=== PATIENT | female | born 1950 | race Caucasian/White ===

== ENCOUNTER 2019-12-24 19:27 | Outpatient (CLI) | payer MEDICARE, SELFPAY ==
--- NOTE | ~2019-12-24 | MR_ITS ---
EXAMINATION: MR cervical spine wo con DATE: 12/24/2019 20:15 INDICATION: Cervical radiculopathy. Neck pain. TECHNIQUE: Magnetic resonance imaging (MRI) of the cervical spine was performed without intravenous c ontrast. Sequences included sagittal T2-weighted FSE, sagittal T2-weighted FS FSE, sagittal T1-weight ed FSE, axial MERGE, and axial T2-weighted FSE. COMPARISON: None FINDINGS: There is 2 mm retrolisthesis of C4 on C5. There is 4 degrees levocurvature of cervical spin e. Vertebral body heights are normal. There is mildly decreased disc height at C4-C5 and C5-C6. The s rach cord signal intensity is normal. The following disc levels are specifically discussed: C2-C3: The disc does not extend beyond the endplate margin. There is no uncovertebral joint osteoarth ritis. There is severe right and moderate left facet joint osteoarthritis. There is mild right neural foraminal stenosis. There is no central canal stenosis. C3-C4: The disc does not extend beyond the endplate margin. There is no uncovertebral joint osteoarth ritis. There is moderate right and mild left facet joint osteoarthritis. There is no neural foraminal stenosis. There is no central canal stenosis. C4-C5: The disc does not extend beyond the endplate margin. There is mild right uncovertebral joint o steoarthritis. There is mild bilateral facet joint osteoarthritis. There is mild bilateral neural for aminal stenosis. There is mild central canal stenosis. C5-C6: The disc does not extend beyond the endplate margin. There is moderate right and severe left u ncovertebral joint osteoarthritis. There is moderate bilateral facet joint osteoarthritis. There is m ild right and moderate left neural foraminal stenosis. There is no central canal stenosis. C6-C7: The disc does not extend beyond the endplate margin. There is mild left uncovertebral joint os teoarthritis. There is moderate right and severe left facet joint osteoarthritis. There is mild left neural foraminal stenosis. There is no central canal stenosis. C7-T1: The disc does not extend beyond the endplate margin. There is no uncovertebral joint osteoarth ritis. There is severe right and moderate left facet joint osteoarthritis. There is mild bilateral ne ural foraminal stenosis. There is no central canal stenosis. IMPRESSION: 1. Moderate cervical spondylosis. Reviewed, dictated and finalized at location A.
== END 2019-12-24 19:28 | disposition home or self-care (01) ==
PROVIDERS: PCP Internal Medicine
DX: M47.22 Other spondylosis with radiculopathy, cervical region (principal)
CPT/HCPCS: 72141

== ENCOUNTER 2020-01-09 15:41 | Outpatient (CLI) | payer MEDICARE, SELFPAY ==
--- NOTE | ~2020-01-09 | CT_ITS ---
EXAMINATION:CT chest wo con DATE: 01/09/2020 16:06 INDICATION: Solitary pulmonary nodule. TECHNIQUE: Computed tomography (CT) of the chest was performed without intravenous contrast. Automate d exposure control and iterative reconstruction technique were employed. The dose-length product (DLP ) was 77.23 mGy-cm. COMPARISON: Chest CT 04/15/2019, 01/19/2016 FINDINGS: There is mild scarring at the lung apices. Calcified pulmonary nodules and calcified hilar and mediastinal lymph nodes are consistent with old granulomatous disease. There is mild atelectasis bilaterally. No pleural effusion. The heart size is normal. There is a stable small pericardial effus ion. Pectus excavatum is noted. Calcifications in the spleen are consistent with old granulomatous di sease. There is severe thoracic spondylosis. IMPRESSION: 1. Stable mild scarring at the lung apices. Reviewed, dictated and finalized at location A.
== END 2020-01-09 15:42 | disposition home or self-care (01) ==
PROVIDERS: PCP Internal Medicine
DX: R91.1 Solitary pulmonary nodule (principal); M47.812 Spondylosis without myelopathy or radiculopathy, cervical region; M75.01 Adhesive capsulitis of right shoulder; M79.12 Myalgia of auxiliary muscles, head and neck; M75.02 Adhesive capsulitis of left shoulder
CPT/HCPCS: 71250

== ENCOUNTER 2021-02-27 08:29 | Outpatient (CLI) | payer MEDICARE, SELFPAY ==
[2021-02-27 13:23] LABS: SARS-CoV-2 RNA PCR Negative (Negative)
== END 2021-02-27 08:30 | disposition home or self-care (01) ==
PROVIDERS: PCP Internal Medicine; Visit Provider Internal Medicine
DX: Z20.822 Contact with and (suspected) exposure to COVID-19 (principal)
CPT/HCPCS: C9803; U0003; U0005

== ENCOUNTER 2021-05-26 07:47 | Outpatient (CLI) | payer MEDICARE, SELFPAY ==
--- NOTE | 2021-05-26 | ECHO_ITS ---
Patient Info Name: Elis Rosa Age: 71 years : 1950 Gender: Female Ht: 64 in Wt: 130 lbs BSA: 1.64 m2 HR: 67 bpm BP: 138 / 80 mmHg Exam Date: 05/26/2021 8:21 AM Exam Location: [facility] Patient Status: Outpatient Admit Date: 05/26/2021 Staff Ordering Physician: Osmany, Chito Ray MD Laundry Operator Finishing: Lul Pérez, NEGRITA, RT Attending Provider: Osmany, Chito Ray MD Referring Physician: Osmany GARCIA; Exam Type: CA echo doppler color flow Study Info Indications I51.7 - Cardiomegaly Complete two-dimensional, color flow and Doppler transthoracic echocardiogram is performed. Strain analysis performed. Summary 1. Complete two-dimensional, color flow and Doppler transthoracic echocardiogram is performed. 2. Left ventricular chamber dimension is normal. 3. Left ventricular systolic function is normal, estimated at 60-65%. 4. The left ventricular diastolic function is grade I diastolic dysfunction. 5. E/e' 8 is minimally elevated. 6. Global longitudinal strain is minimally abnormal a -16.9%. 7. There is mild mitral valve regurgitation. 8. No pulmonary hypertension, estimated pulmonary arterial systolic pressure is 31 mmHg. 9. Dilated inferior vena cava with >50% collapse upon inspiration consistent with elevated right atrial pressure, 10 mmHg. 10. There is trivial pericardial effusion. Left Ventricle E/e' 8 is minimally elevated. Global longitudinal strain is minimally abnormal a -16.9%. Left ventricular chamber dimension is normal. Left ventricular systolic function is normal, estimated at 60-65%. The left ventricular diastolic function is grade I diastolic dysfunction. Right Ventricle Right ventricular chamber dimension is normal. Right ventricular systolic function is normal. Left Atria Left atrial chamber dimension is normal. Right Atria Right atrial chamber dimension is normal. Aortic Valve The aortic valve is trileaflet. There is no aortic valve stenosis. There is no aortic valve regurgitation. Pulmonic Valve There is no pulmonic regurgitation. Mitral Valve There is no mitral valve stenosis. There is mild mitral valve regurgitation. Tricuspid Valve There is no tricuspid valve regurgitation. No pulmonary hypertension, estimated pulmonary arterial systolic pressure is 31 mmHg. Pericardium/Pleural There is trivial pericardial effusion. Inferior Vena Cava Dilated inferior vena cava with >50% collapse upon inspiration consistent with elevated right atrial pressure, 10 mmHg. Aorta The aortic root size at the sinus of Valsalva is normal. Left Ventricular Outflow Tract Name Value Normal LVOT 2D LVOT Diameter 2.0 cm LVOT Doppler LVOT Peak Gradient 2 mmHg LVOT Mean Gradient 1 mmHg LVOT VTI 15 cm LVOT VTI/AV VTI Ratio 0.7 LVOT Stroke Volume 47 ml LVOT CO 3.5 l/min LVOT CI 2.2 l/min/m2 Mitral Valve
--- NOTE | 2021-05-26 14:48 | WPDPFTINT ---
PFT Procedure Performed PFT Procedure Performed Plethysmography (Lung Vol) Diffusing Cap (DLCO) Flow Vol Loop Spirometry w/o Bronchodil PFT Interpretation Lung volumes were measured with the body plethysmography method. The lung volumes are unremarkable. Spirometry showed normal expiratory flow rates, borderline normal FEV1 to FVC ratio of 69% and diminished mid expiratory flow rates at 53% predicted. No post bronchodilator study was carried out. Lung diffusion capacity is normal at 74% predicted. The flow volume loop is consistent with a small airway disease. Impression: Probable small airway disease. Lung diffusion capacity within normal range.
== END 2021-05-26 07:48 | disposition home or self-care (01) ==
LOC: ANHCARD 07:53
PROVIDERS: PCP Internal Medicine; Visit Provider Internal Medicine
DX: I51.7 Cardiomegaly (principal); R06.00 Dyspnea, unspecified; J43.9 Emphysema, unspecified; I34.0 Nonrheumatic mitral (valve) insufficiency
CPT/HCPCS: 93306; 94375; 94726; 94729

== ENCOUNTER 2021-10-23 18:22 | Observation (INO) | payer MEDICARE, SELFPAY ==
--- NOTE | ~2021-10-23 | NM_ITS ---
EXAMINATION: NM atiya stress w perfusion DATE: 10/25/2021 14:43 INDICATION: Chest pain. TECHNIQUE: Rest images were obtained following intravenous administration of 10.1 mCi Tc99m tetrofosm in (Myoview). The patient was infused intravenously with Lexiscan (regadenoson). Then, 33.1 mCi Tc99m tetrofosmin (Myoview) was administered intravenously, and stress images were obtained. Data was adelfo nstructed into short axis and horizontal and vertical long axis SPECT images. Gated SPECT images were also obtained. COMPARISON: Chest CT 01/09/2020 FINDINGS: There is no definite reversible or fixed perfusion abnormality to suggest ischemia or infar ction. There is no segmental wall motion abnormality. Left ventricular ejection fraction measures > 70%. IMPRESSION: 1. No definite ischemia or infarct. 2. Normal left ventricular ejection fraction measuring >70%. Reviewed, dictated and finalized at location A.
[2021-10-23 16:30] VITALS: BP 150/68; PULSE 78; PULSE 91; RESP 16; TEMP 36.5; O2SAT 100
--- NOTE | 2021-10-23 17:50 | ADMGEN ---
This patient, Elis Rosa, was admitted to IMU Room 200-01 at 1626. Patient/family oriented to hospital policies and general routines including ID bracelet, bed and alarms, visiting hours, pain management, procedures, bathroom and other care routines, personal items, smoking policy, room service/diet, and visiting hours. Information on how to activate the Rapid Response Team has been discussed. Patient/Family are encouraged to report perceived risks to care and to ask questions if they do not understand what they are told or what they should do.
[2021-10-23 18:00] VITALS: PULSE 79
--- NOTE | 2021-10-23 18:22 | ECG_ITS ---
Measurements Intervals [place] Rate: 77 P: 64 NC: 177 QRS: -46 QRSD: 93 T: 72 QT: 365 QTc: 414 Interpretive Statements SINUS RHYTHM LEFT ATRIAL ENLARGEMENT [-0.15mV P WAVE IN V1/V2] RSR' IN V1/V2 LEFT ANTERIOR FASCICULAR BLOCK [QRS AXIS <= -45, QR IN I, RS IN II] ANTERIOR MYOCARDIAL INFARCTION , OF INDETERMINATE AGE [40+ ms Q WAVE AND/OR ST/T ABNORMALITY IN V3/V4] ABNORMAL ECG NO PREVIOUS ECG AVAILABLE FOR COMPARISON Electronically Signed On 10-24-2021 16:13:59 CDT by Cecil Roa M.D.
--- NOTE | 2021-10-23 18:30 | PM.IMHP ---
H&P: HPI History of Present Illness Date/Time: 10/23/21 17:00 Chief Complaint: Chest pain. Narrative: This is a very pleasant 71-year-old female with hypertension, hypothyroidism, rheumatoid arthritis, and history of minimal change disease who is being directly admitted to the IMU from the emergency department at [facility] in [place] for evaluation of chest pain and consultation with cardiology. She reports increasing episodes of diffuse anterior chest heaviness/pressure that seem to occur most often in the public relations manager hours, between 0300 and 0500. It is typically self limiting though she has taken nitroglycerin on a few occasions, with benefit. She has not noticed any aggravating factors and she specifically denies that it is worse with exertion or eating. At times the chest discomfort is associated with lightheadedness, shortness of breath, palpitations, and mild nausea. She has also noticed and increase in her blood pressure with a systolic reading of 180 today. Her energy has also been decreased and she has been quite fatigued. She recently established care with a new outpatient physical therapist assistant, Dr. Domingo Reese at [place], and in fact she is currently wearing a 30 day event monitor for evaluation of the above symptoms. She has no known history of coronary artery disease or cardiac dysrhythmia. She denies overt pleuritic pain though she notes some discomfort between the scapulae. She denies syncope, near-syncope, orthopnea, paroxysmal nocturnal dyspnea, edema, vomiting, bloating, melena, and sweats. It should be noted that she lost her somewhat unexpectedly several months ago but she seems to be doing quite well in that regard. She denies recent change in stressors. Review of Systems Review of Systems: Twelve systems were reviewed and are negative except as per HPI. [facility] Past Medical History Medical History (Updated 10/23/21 @ 18:50 by Sharyn Meza PA-C) Essential hypertension Hypothyroidism Minimal change disease Rheumatoid arthritis Surgical History Surgical History (Updated 10/23/21 @ 22:11 by Sharyn Meza PA-C) History of cataract extraction with lens replacement History of cholecystectomy History of partial colectomy For recurrent diverticulitis. History of tonsillectomy History of total replacement of right shoulder joint Family History Family History Father Acute myocardial infarction Hypertension H/O heart surgery Congestive heart failure History of blood clots Social History Social History (Updated 10/23/21 @ 22:12 by Sharyn Meza PA-C) Social History: Surrogate decision maker: Aleida Ordoñez, daughter. Code status: Full code. Smoking status: Never smoker Second hand tobacco smoke exposure: Yes Alcohol intake: never Substance use: never Additional living arrangements comments: Lives alone. as of June 2021. Additional occupation/education comments: Retired. Spiritual care concerns: No Meds Home Medications and Allergies Home Medications Medication Instructions Recorded Confirmed Type amlodipine 5 mg tablet 5 mg PO DAILY 07/25/19 10/23/21 History hydrochlorothiazide 12.5 mg tablet 12.5 mg PO DAILY 07/25/19 10/23/21 History levothyroxine 125 mcg capsule 125 mcg PO DAILY 07/25/19 10/23/21 History nitroglycerin 0.4 mg sublingual See Rx Instructions .ROUTE 07/25/19 10/23/21 History tablet .COMPLEX PRN bupropion HCl 150 mg PO DAILY 10/23/21 10/23/21 History ezetimibe 10 mg PO DAILY 10/23/21 10/23/21 History Allergies Allergy/AdvReac Type Severity Reaction Status Date / Time morphine Allergy Severe Hallucinati Verified 10/23/21 17:30 ng Vital Signs Vital Signs - 24 hr 10/23/21 16:30 10/23/21 18:00 Temperature 97.7 F Pulse Rate 78 79 Respiratory Rate 16 Blood Pressure 150/68 H Pulse Oximetry 100 Exam Narrative: General: Well-developed fema
[2021-10-23] MEDS: ACETAMINOPHEN 325 MG TABLET 650 MG PO (18:46)
[2021-10-23 19:35] LABS: Troponin I < 0.012 ng/mL (0.000-0.034)
[2021-10-23 20:00] VITALS: BP 122/69; PULSE 74; PULSE 83; RESP 14; TEMP 36.2; O2SAT 97
[2021-10-23 20:53] LABS: D Dimer 0.27 ug/mL (<0.48)
[2021-10-23] MEDS: IBUPROFEN 600 MG TABLET PO (21:08)
[2021-10-23 22:00] VITALS: PULSE 72
[2021-10-23 23:33] VITALS: BP 127/61; PULSE 81; RESP 16; TEMP 36.6; O2SAT 97
[2021-10-24] VITALS (16 sets, daily range): BP systolic 118–126; BP diastolic 56–70; PULSE 63–97; RESP 14–18; TEMP 36.3–36.8; O2SAT 95–100
[2021-10-24] MEDS: ACETAMINOPHEN 325 MG TABLET 650 MG PO ×2 (04:22→09:22)
[2021-10-24 04:25] LABS: Hematocrit 42.6 % (37.0-47.0); Hemoglobin 14.3 g/dL (12.0-15.0); Mean Corpuscular HGB Conc 33.6 g/dl (32-36); Mean Corpuscular Hemoglobin 31.2 pg (26-34); Mean Platelet Volume 10.8 fl (7.4-10.4); Platelet Count Result 214 k/mm3 (150-375); Red Blood Count 4.58 M/mm3 (4.2-5.4); White Blood Count 7.2 K/mm3 (4.5-10.0)
[2021-10-24 04:36] LABS: Anion Gap 0 mmol/L (8-16); Blood Urea Nitrogen 19 mg/dL (7-17); Calcium 9.8 mg/dL (8.4-10.2); Carbon Dioxide 31 mmol/L (22-30); Chloride 104 mmol/L (98-107); Cholesterol 216 mg/dL (0-200); Estimated CRCL calculation 48 ml/min; Estimated Glomerular Filt Rate > 60; Glucose 106 mg/dL (65-110); HDL Direct 46 mg/dL; Magnesium 1.9 mg/dL (1.6-2.3); Potassium 4.3 mmol/L (3.4-5.0); Sodium 135 mmol/L (137-145); Triglycerides 201 mg/dL (<150)
[2021-10-24 04:47] LABS: LDL Cholesterol Direct 109 mg/dL
[2021-10-24] MEDS: ENOXAPARIN 40 MG/0.4 ML SYRINGE SUB-Q (09:18)
--- NOTE | 2021-10-24 11:13 | PM.IMPN ---
Progress Note: A&P Assessment and Plan (1) Chest pain: Code(s): R07.9 - Chest pain, unspecified Status: Acute Assessment and Plan: Her history is somewhat atypical for cardiac pain however she notes that it was nitrate responsive on the couple of occasions where she took a nitroglycerin tablet. She will be monitored closely on telemetry overnight and Dr. Roa has been consulted for his input. She has just established care with Dr. Reese at [facility] in [place] and if she requires a procedure she would possibly want to be transferred there under his care. Pending cardiology evaluation May need stress test in a.m. Pending cardiology evaluation (2) Essential hypertension: Code(s): I10 - Essential (primary) hypertension Status: Chronic Assessment and Plan: Blood pressures have reportedly been running high at home Patient recently lost her and since then blood pressure is poorly controlled. (3) Hypothyroidism: Code(s): E03.9 - Hypothyroidism, unspecified Status: Acute Assessment and Plan: Continue levothyroxine and TSH. Subjective Date/time seen: 10/24/21 11:13 Interval history: 71-year-old female with hypertension, hypothyroidism, rheumatoid arthritis, and history of minimal change disease who is being directly admitted to the IMU from the emergency department at [facility] for evaluation of chest pain and consultation with cardiology Patient has event monitor Patient feels better Patient denies fever headache shortness of breath I am seeing the patient for chest pain Exam Narrative: Alert Chest no wheeze crackles Abdomen nontender nondistended CVS S1 + S2 Lower extremity edema Objective Data Vital Signs Vital Signs: Vital Signs - 24 hr 10/23/21 16:30 10/23/21 18:00 10/23/21 20:00 Temperature 97.7 F 97.1 F L Pulse Rate 78 79 74 Respiratory Rate 16 14 Blood Pressure 150/68 H 122/69 Pulse Oximetry 100 97 10/23/21 22:00 10/23/21 23:33 10/24/21 00:00 Temperature 97.8 F Pulse Rate 72 81 86 Respiratory Rate 16 Blood Pressure 127/61 Pulse Oximetry 97 10/24/21 02:00 10/24/21 04:00 10/24/21 04:12 Temperature 97.4 F L Pulse Rate 66 68 Respiratory Rate 16 Blood Pressure 126/63 Pulse Oximetry 98 96 10/24/21 05:45 10/24/21 08:00 10/24/21 10:00 Temperature 98.2 F Pulse Rate 63 71 97 Respiratory Rate 14 Blood Pressure 124/70 Pulse Oximetry 99 Intake/Output Intake/Output: Intake & Output 10/21/21 10/22/21 10/23/21 10/24/21 23:59 23:59 23:59 23:59 Intake Total 620 470 Balance 620 470 Meds/Results Medications: Active Medications Generic Name Dose Route Start Last Admin Trade Name Freq PRN Reason Stop Dose Admin Acetaminophen 650 mg 10/23/21 18:22 10/24/21 09:22 Acetaminophen 325 Mg Tablet PO 650 mg Q4H PRN Administration Mild Pain (1-3) or Fever Amlodipine Besylate 5 mg 10/24/21 09:00 Amlodipine Besylate 5 Mg Tablet PO DAILY [facility] Bupropion HCl 150 mg 10/24/21 09:00 Bupropion Hcl Xl (24 Hr) 150 Mg Tabcr PO DAILY [facility] Ezetimibe 10 mg 10/24/21 09:00 Ezetimibe 10 Mg Tablet PO DAILY [facility] Enoxaparin Sodium 40 mg 10/24/21 09:00 10/24/21 09:18 Enoxaparin 40 Mg/0.4 Ml Syringe SUB-Q 40 mg DAILY [facility] Administration Hydrochlorothiazide 12.5 mg 10/24/21 09:00 Hydrochlorothiazide 12.5 Mg Capsule PO DAILY [facility] Levothyroxine Sodium 125 mcg 10/25/21 06:30 Levothyroxine Sodium 125 Mcg Tablet PO DAILY@0630 [facility] Nitroglycerin 0.4 mg 10/24/21 10:30 Nitroglycerin Sl 0.4 Mg Tablet SUBLINGUAL Q5M PRN Chest Pain Ondansetron HCl 4 mg 10/23/21 18:22 Ondansetron Inj 4 Mg/2 Ml Vial IV PUSH Q6H PRN Nausea And Vomiting Labs Labs: Laboratory Results - last 24 hr 10/23/21 10/23/21 10/23/21 18:47 18:47 18:47 WBC RBC Hgb Hct MCV [facility]
[2021-10-24] MEDS: EZETIMIBE 10 MG TABLET PO (11:20)
[2021-10-24] MEDS: hydroCHLOROthiazide 12.5 MG CAPSULE PO (11:20)
[2021-10-24] MEDS: amLODIPine BESYLATE 5 MG TABLET PO (11:20)
[2021-10-24 11:54] LABS: Troponin I < 0.012 ng/mL (0.000-0.034)
--- NOTE | 2021-10-24 15:10 | PM.CNCAR ---
Assessment and Plan Assessment and plan (1) Chest pain: Qualifiers: Chest pain type: other chest pain Qualified Code(s): R07.89 - Other chest pain Code(s): R07.9 - Chest pain, unspecified Status: Acute Assessment and Plan: Somewhat atypical, self-limited chest pain which would occur at rest improved gradually despite level activity yet progressive associated fatigue, shortness of breath, change in activity tolerance and behavior. Patient reports intermittent blood pressures up to 180 mm Hg systolic and concomitant symptoms unsure if resolved with improvement in BP at home. Chest pain resolved here however later during our interview chest pressure returned to mild degree then resolved once again. She has ruled out for myocardial infarction with negative serial cardiac enzymes. EKG is abnormal possible anterior myocardial infarction but unchanged compared to 2016. She was previously followed by Dr. Whitley at [facility] just recently established with Dr. Domingo Reese at [facility] [place]. Very extensive discussion held with the patient and her 2 daughters at bedside. They were grateful for the time spent and explanations provided. Explained the pros and cons of noninvasive ischemic testing, risks associated invasive angiography nature of symptomatic obstructive CAD the difference in pathophysiology with acute myocardial infarction as well as alternative explanations her symptoms. Unquestionably, she is going through a lot with regards to the recent of her from a myocardial infarction as reported yet I do not feel her symptoms are simply a grief or stress reaction in the this regard. We discussed at length alternative explanations for her symptoms including musculoskeletal, GI, etc. Discussed her echocardiogram from May 2021 revealed preserved LV systolic function without focal wall motion abnormalities. We discussed the significance light of her abnormal EKG. We discussed potential findings on a noninvasive ischemic evaluation decision to proceed with invasive angiography and or ongoing workup for alternative explanations. Thus far she is stable hemodynamically, no evidence of acute myocardial infarction or significant change on EKG. Her echocardiogram was fairly unremarkable previously. Her exam is not suggestive of significant valvular heart disease nor is she in decompensated heart failure. NPO after midnight for Lexiscan nuclear perfusion stress test in a.m.. Further recommendation to follow after review. Discussed at length. Patient and both of her daughters verbalized understanding and agreed with plan of care. No indication for aspirin at this time. 64 minutes was spent care of this patient at bedside with discussion with the patient her daughters, examination, chart review, medical decision-making, and documentation. (2) Essential hypertension: Code(s): I10 - Essential (primary) hypertension Status: Chronic Assessment and Plan: Reasonably controlled thus far. However, reported recurrent uncontrolled episodes up to 180 mm Hg systolic. Continue monitor closely. Further adjustment in antihypertensive therapy as appropriate. (3) Mixed hyperlipidemia: Code(s): E78.2 - Mixed hyperlipidemia Status: Acute Assessment and Plan: Continue Zetia. LDL 109 total cholesterol 216. (4) Rheumatoid arthritis involving both hands: Qualifiers: Rheumatoid factor presence: unspecified presence Qualified Code(s): M06.9 - Rheumatoid arthritis, unspecified Code(s): M06.9 - Rheumatoid arthritis, unspecified Status: Acute Assessment and Plan: Per primary service. (5) Hypothyroidism: Qualifiers: Hypothyroidism type: acquired Qualified Code(s): E03.9 - Hypothyroidism, unspecified Code(s): E03.9 - Hypothyroidism, unspecified Status: Acute Assessment and Plan: Continue levothyroxine, stable TS
[2021-10-24] MEDS: CALCIUM CARBONATE (TUMS) 500 MG (200 MG ELEMENTAL) PO (16:11)
[2021-10-24] MEDS: ONDANSETRON INJ 4 MG/2 ML VIAL IV PUSH (19:35)
[2021-10-25] VITALS (11 sets, daily range): BP systolic 115–124; BP diastolic 54–58; PULSE 68–87; RESP 18–20; TEMP 36.3–36.5; O2SAT 96–99
[2021-10-25] MEDS: LEVOTHYROXINE SODIUM 125 MCG TABLET PO (06:36)
[2021-10-25] MEDS: amLODIPine BESYLATE 5 MG TABLET PO (09:59)
[2021-10-25] MEDS: EZETIMIBE 10 MG TABLET PO (09:59)
[2021-10-25] MEDS: hydroCHLOROthiazide 12.5 MG CAPSULE PO (10:00)
--- NOTE | 2021-10-25 12:20 | PM.PNCARD ---
Progress Note: A&P Assessment and Plan (1) Chest pain: Qualifiers: Chest pain type: other chest pain Qualified Code(s): R07.89 - Other chest pain Code(s): R07.9 - Chest pain, unspecified Status: Acute Assessment and Plan: Somewhat atypical, self-limited chest pain which would occur at rest improved gradually despite level activity yet progressive associated fatigue, shortness of breath, change in activity tolerance and behavior. Patient reports intermittent blood pressures up to 180 mm Hg systolic and concomitant symptoms unsure if resolved with improvement in BP at home. Chest pain has resolved at this point. She has ruled out for myocardial infarction with negative serial cardiac enzymes. EKG is abnormal possible anterior myocardial infarction but unchanged compared to 2016. Echocardiogram from May 2021 revealed preserved LV systolic function without focal wall motion abnormalities. Underwent lexiscan nuclear stress test today, will leave further recommendations upon review of those results when they are available. (2) Essential hypertension: Code(s): I10 - Essential (primary) hypertension Status: Chronic Assessment and Plan: Reasonably controlled thus far. However, reported recurrent uncontrolled episodes up to 180 mm Hg systolic. Continue to monitor closely. Further adjustment in antihypertensive therapy as appropriate. (3) Mixed hyperlipidemia: Code(s): E78.2 - Mixed hyperlipidemia Status: Acute Assessment and Plan: Continue Zetia. LDL 109 total cholesterol 216. (4) Rheumatoid arthritis involving both hands: Qualifiers: Rheumatoid factor presence: unspecified presence Qualified Code(s): M06.9 - Rheumatoid arthritis, unspecified Code(s): M06.9 - Rheumatoid arthritis, unspecified Status: Acute Assessment and Plan: Per primary service. (5) Hypothyroidism: Qualifiers: Hypothyroidism type: acquired Qualified Code(s): E03.9 - Hypothyroidism, unspecified Code(s): E03.9 - Hypothyroidism, unspecified Status: Acute Assessment and Plan: Continue levothyroxine, stable TSH, management per primary service. Subjective Date/time seen: 10/25/21 12:20 Cardiology follow up for chest pain Feeling much better today. She denies any chest pain. Slept o.k. last night. I am seeing her in the stress lab prior to her lexiscan. Review of Systems Review of Systems: All systems reviewed & are unremarkable except as noted in HPI and below Constitutional: Constitutional: Reports as per HPI, Reports no additional constitutional complaints, Reports difficulty sleeping, Reports fatigue and Reports lethargy Eyes: Eyes: Reports as per HPI and Reports no additional eye complaints ENT: Reports system reviewed and no additional complaints, except as documented and Reports as per HPI Cardiovascular: Cardiovascular: Reports as per HPI, Reports no additional cardiovascular complaints, Reports chest pain at rest, Reports rapid heart rate, Denies palpitations, Reports dyspnea and Reports dyspnea on exertion Respiratory: Respiratory: Reports as per HPI, Reports no additional respiratory complaints, Reports cough, Reports dyspnea and Reports dyspnea on exertion Gastrointestinal: Gastrointestinal: Reports as per HPI, Reports no additional gastrointestinal complaints, Denies melena, Denies hematochezia, Denies nausea and Denies vomiting Genitourinary: Genitourinary: Reports as per HPI Musculoskeletal: Musculoskeletal: Reports no additional musculoskeletal complaints and Reports as per HPI Integumentary/Breasts: Skin/Breast: Reports system reviewed and no additional complaints, except as docu and Reports as per HPI Neurologic: Reports system reviewed and no additional complaints, except as documented, Reports as per HPI and Reports behavioral changes Psychiatric: Psychiatric: Reports no additional psychiatric
--- NOTE | 2021-10-25 13:51 | P.DS_ITS ---
DS: Admitting Diagnosis Discharge Date 10/25/2021 Admitting Diagnosis Chest pain DS: Discharge Diagnosis Discharge Diagnosis (1) Chest pain: Qualifiers: Chest pain type: other chest pain Qualified Code(s): R07.89 - Other chest pain Code(s): R07.9 - Chest pain, unspecified Status: Acute Assessment and Plan: Her history is somewhat atypical for cardiac pain however she notes that it was nitrate responsive on the couple of occasions where she took a nitroglycerin tablet. Cardiology consult Stress test was done pending final results Probable GERD give PPI (2) Essential hypertension: Code(s): I10 - Essential (primary) hypertension Status: Chronic Assessment and Plan: Blood pressures have reportedly been running high at home Patient recently lost her and since then blood pressure is poorly controlled. (3) Hypothyroidism: Qualifiers: Hypothyroidism type: acquired Qualified Code(s): E03.9 - Hypothyroidism, unspecified Code(s): E03.9 - Hypothyroidism, unspecified Status: Acute Assessment and Plan: Continue levothyroxine DS: Summary Hospital Course Hospital Course: Patient presented to the hospital with chest pain cardiology was consult stress test was done was negative follow-up with PCP as out Follow-up with sepsis cardiology Time Spent with Patient Time attestation: Total time spent providing and/or coordinating discharge services: Discharge Plan Discharge Attending physician on discharge: Floridalma Tyler M.A. Consulting providers: Cecil Roa Discharging Clinician: Floridalma Tyler M.A. Patient Disposition: Home, Self-Care Activity: as tolerated Diet: heart healthy Patient Instructions: Antibiotic Form, Chest Pain (DC) Stand Alone Forms: General Discharge Information Follow-up/Referrals: Cecil Roa MD [Physician] - [place],Chito Ray MD [Primary Care Provider] - Discharge Medications: New famotidine [Pepcid] 20 mg tablet 20 mg PO BID Qty: 30 RF: 0 Continued Tirosint 125 mcg capsule 125 mcg PO DAILY RF: 0 nitroglycerin 0.4 mg tablet, sublingual See Rx Instructions .ROUTE .COMPLEX PRN (Reason: Chest Pain) RF: 0 hydrochlorothiazide 12.5 mg tablet 12.5 mg PO DAILY RF: 0 amlodipine 5 mg tablet 5 mg PO DAILY RF: 0 ezetimibe 10 mg tablet 10 mg PO DAILY RF: 0 bupropion HCl 150 mg tablet extended release 24 hr 150 mg PO DAILY RF: 0 Date of admission: 10/23/21 18:22 Primary Care Provider: Osmany,Chito Ray Admitting Provider: Floridalma Tyler M.A. Attending physician on admission: Floridalma Tyler M.A. Condition: Stable Quality VTE Prophylaxis VTE prophylaxis: pharmacologic ordered
--- NOTE | 2021-10-25 15:34 | EST_ITS ---
Patient Info Name: Elis Rosa Age: 71 years : 1950 Gender: Female Ht: 64 in Wt: 116 lbs BSA: 1.54 m2 HR: 77 bpm BP: 131 / 73 mmHg Heart Rhythm: Sinus Rhythm Exam Date: 10/25/2021 12:01 PM Exam Location: [facility] Stress Patient Status: Outpatient Admit Date: 10/23/2021 Staff Ordering Physician: Cecil Roa MD Attending Provider: Floridalma Tyler M.A., MD Nurse: TAMMY GREY Exam Type: CA stress atiya w NM Study Info Indications R07.9 - Chest pain, unspecified A regadenoson stress test was performed. Summary 1. ECG portion of pharmacological stress test is negative for ischemia by ECG criteria. Correlate with perfusion imaging. Protocol: Lexiscan Stress ECG Details Stage: REST Duration (min): 0 min : 54 sec HR (bpm): 74 SBP (mmHg): 131 DBP (mmHg): 73 Stage: REST Duration (min): 7 min : 8 sec HR (bpm): 75 SBP (mmHg): 131 DBP (mmHg): 73 Stage: STAGE 1 Duration (min): 1 min : 0 sec HR (bpm): 106 SBP (mmHg): 132 DBP (mmHg): 59 Stage: RECOVERY Duration (min): 1 min : 0 sec HR (bpm): 116 SBP (mmHg): 132 DBP (mmHg): 59 Stage: RECOVERY Duration (min): 2 min : 0 sec HR (bpm): 118 SBP (mmHg): 132 DBP (mmHg): 59 Stage: RECOVERY Duration (min): 3 min : 0 sec HR (bpm): 114 SBP (mmHg): 125 DBP (mmHg): 61 Stage: RECOVERY Duration (min): 4 min : 0 sec HR (bpm): 108 SBP (mmHg): 125 DBP (mmHg): 61 Stage: RECOVERY Duration (min): 5 min : 0 sec HR (bpm): 102 SBP (mmHg): 138 DBP (mmHg): 62 Stage: RECOVERY Duration (min): 6 min : 0 sec HR (bpm): 100 SBP (mmHg): 138 DBP (mmHg): 62 Stage: RECOVERY Duration (min): 6 min : 19 sec HR (bpm): 97 SBP (mmHg): 138 DBP (mmHg): 62 Rest HR: 75 bpm Peak HR: 123 bpm Rest Sys BP: 131 mmHg Peak Sys BP: 138 mmHg Max Pred HR: 151 bpm % Max Pred HR: 81 % Target HR: 128 bpm Max RPP: 16,974 bpm*mmHg Total Time: 1 min : 0 sec Rest Eli BP: 73 mmHg Peak Eli BP: 62 mmHg Total Dose: 0.4 mg Resting ECG Sinus rhythm, poor R-wave progression, anterior myocardial infarction of indeterminate age. Stress ECG Do not meet criteria for ischemia. Arrhythmias No significant arrhythmias. Report Signatures
== END 2021-10-25 16:07 | disposition home or self-care (01) ==
PROVIDERS: Physician Assistant; Admitting Provider Internal Medicine; PCP Internal Medicine; Visit Provider Internal Medicine
DX: R07.9 Chest pain, unspecified (principal); I10 Essential (primary) hypertension; E03.9 Hypothyroidism, unspecified; E78.2 Mixed hyperlipidemia; M06.9 Rheumatoid arthritis, unspecified; Z96.611 Presence of right artificial shoulder joint
CPT/HCPCS: 36415; 78452; 80048; 80061; 83735; 84443; 84484; 85027; 85380; 93005; 93017; 96372; 96374; A9270; A9502; G0378; G0379; J1650; J2405; J2785

== ENCOUNTER 2022-06-02 10:58 | Outpatient (CLI) | payer MEDICARE, SELFPAY ==
--- NOTE | ~2022-06-02 | XR_ITS ---
EXAMINATION: XR chest 2V DATE: 06/02/2022 11:41 INDICATION: Productive cough TECHNIQUE: PA and lateral views of the chest are obtained. COMPARISON: 01/19/2016 FINDINGS: The lungs are free of acute opacities. No pleural effusion or pneumothorax. The cardiomedia stinal silhouette is normal. There is moderate thoracic spondylosis. Calcified pulmonary nodules and calcified left hilar lymph nodes are consistent with old granulomatous disease. There are changes of interval right shoulder arthroplasty. Advanced osteoarthritis is noted in the left glenohumeral joint . IMPRESSION: 1. No acute cardiopulmonary abnormality. Reviewed, dictated and finalized at location B. ALT WORKER
[2022-06-02 11:59] LABS: Basophils Absolute Auto 0.1 K/mm3 (0.0-0.1); Basophils Percent Auto 1.1 % (0.2-1.2); Eosinophils Absolute Auto 0.2 K/mm3 (0-0.3); Eosinophils Percent Auto 2.5 % (0-4.4); Hematocrit 47.2 % (37.0-47.0); Hemoglobin 15.5 g/dL (12.0-15.0); Immature Granulocyte Absolute 0.03 K/mm3 (0.00-0.031); Immature Granulocyte Percent A 0.4 % (0-0.5); Lymphocytes Absolute Auto 1.46 K/mm3 (0.9-3.2); Lymphocytes Percent Auto 17.6 % (18.3-44.2); Mean Corpuscular HGB Conc 32.8 g/dl (32-36); Mean Corpuscular Hemoglobin 31.2 pg (26-34); Mean Platelet Volume 11.8 fl (7.4-10.4); Monocytes Absolute Auto 0.7 K/mm3 (0.1-0.6); Monocytes Percent Auto 7.9 % (2.6-8.5); Neutrophils Absolute Auto 5.8 K/mm3 (1.3-6.7); Neutrophils Percent Auto 70.5 % (45.5-73.1); Platelet Count Result 246 k/mm3 (150-375); Red Blood Count 4.97 M/mm3 (4.2-5.4); Red Cell Distribution Width 11.9 % (11.5-14.5); White Blood Count 8.3 K/mm3 (4.5-10.0)
[2022-06-02 12:23] LABS: Alanine Aminotransferase 21 U/L (6-35); Albumin Level 4.2 g/dL (3.5-5.1); Alkaline Phosphatase 81 U/L (38-126); Anion Gap 11 mmol/L (8-16); Aspartate Amino Transferase 29 U/L (14-36); Bilirubin,Total 0.7 mg/dL (0.2-1.3); Blood Urea Nitrogen 18 mg/dL (7-17); CRP < 0.5 mg/dL (<1.0); Calcium 9.1 mg/dL (8.4-10.2); Carbon Dioxide 27 mmol/L (22-30); Chloride 102 mmol/L (98-107); Cholesterol 226 mg/dL (0-200); Estimated Glomerular Filt Rate > 60; Glucose 87 mg/dL (65-110); HDL Direct 42 mg/dL; Potassium 3.8 mmol/L (3.4-5.0); Sodium 140 mmol/L (137-145); Triglycerides 182 mg/dL (<150)
[2022-06-02 12:24] LABS: Appearance Urine Clear (Clear); Bilirubin Urine Negative (Negative); Blood Urine Negative (Negative); Color Urine Yellow (Yellow); Glucose Urine UA Negative (Negative); Ketones Urine 1+ mg/dL (Negative); Leukocyte Esterase Ur Negative LEU/UL (Negative); Nitrate Urine Negative (Negative); Protein Urine Negative (Negative); Urobilinogen Urine 0.2 mg/dL (<2.0); pH Urine 6.5 (5.0-9.0)
[2022-06-02 12:32] LABS: LDL Cholesterol Direct 117 mg/dL
[2022-06-02 12:37] LABS: Bacteria Urine Trace /hpf; Mucus Urine Rare /lpf; RBC Urine 0-2 /hpf (0-2); Squamous Epithelial Cell Urine Few /hpf (Few); WBC Urine 0-3 /hpf
[2022-06-02 12:39] LABS: Add Urine Microscopic? YES
[2022-06-02 12:49] LABS: Thyroid Stimulating Hormone 0.779 uIU/mL (0.465-4.680)
[2022-06-02 13:09] LABS: Erythrocyte Sedimentation Rate 6 mm/hr (0-20)
[2022-06-02 14:02] LABS: Free T4 Free Thyroxine 1.35 ng/mL (0.78-2.19); Vitamin D 25 Hydroxy 66.2 ng/mL
[2022-06-02 16:51] LABS: Hemoglobin A1C 4.8 % (<5.7)
[2022-06-04 13:05] LABS: Insulin Level Total 2.5 uIU/mL (<=19.6)
== END 2022-06-02 10:59 | disposition home or self-care (01) ==
PROVIDERS: PCP Internal Medicine; Visit Provider Internal Medicine
DX: E55.9 Vitamin D deficiency, unspecified (principal); Z79.899 Other long term (current) drug therapy; E03.9 Hypothyroidism, unspecified; Z86.39 Personal history of other endocrine, nutritional and metabolic disease; E78.2 Mixed hyperlipidemia; Z13.1 Encounter for screening for diabetes mellitus; I10 Essential (primary) hypertension; M06.9 Rheumatoid arthritis, unspecified
CPT/HCPCS: 36415; 71046; 80053; 80061; 81001; 82306; 83036; 83525; 84439; 84443; 85025; 85652; 86140

== ENCOUNTER 2022-07-16 14:53 | Emergency (ER) | payer MEDICARE, SELFPAY ==
--- NOTE | ~2022-07-16 | XR_ITS ---
EXAMINATION: XR chest 2V Exam Date/Time: 07/16/2022 16:24 PIPEFITTER HELPER HISTORY: CP TIGHTNESS x 2 days Comparison: 06/02/2022. RESULT: Lines, tubes, and devices: Partially visualized right shoulder arthroplasty. Lungs and pleura: Senescent and emphysematous change. Multiple calcified granulomas. Cardiomediastinal silhouette: Stable. Calcified hilar nodes. Other: No acute osseous or upper abdominal finding. IMPRESSION: No acute cardiopulmonary process. Reviewed, dictated and finalized at location K. FITTER HELPER
--- NOTE | 2022-07-16 14:54 | ECG_ITS ---
Measurements Intervals Soldier Rate: 89 P: 70 OK: 167 QRS: -49 QRSD: 77 T: 57 QT: 346 QTc: 422 Interpretive Statements SINUS RHYTHM POSSIBLE RIGHT ATRIAL ENLARGEMENT LEFT ATRIAL ENLARGEMENT POSSIBLE RIGHT VENTRICULAR CONDUCTION DELAY LEFT ANTERIOR FASCICULAR BLOCK ANTERIOR MYOCARDIAL INFARCTION, OF INDETERMINATE AGE ABNORMAL ECG COMPARED TO ECG 10/23/2021 20:19:25 NO SIGNIFICANT CHANGES Electronically Signed On 07-17-2022 15:37:23 COAT REPAIR INSPECTOR by Cecil Roa M.D.
[2022-07-16 15:23] VITALS: BP 139/62; PULSE 98; RESP 14; TEMP 36.4; O2SAT 99
[2022-07-16 15:37] LABS: Basophils Absolute Auto 0.1 K/mm3 (0.0-0.1); Basophils Percent Auto 1.1 % (0.2-1.2); Eosinophils Absolute Auto 0.2 K/mm3 (0-0.3); Eosinophils Percent Auto 2.3 % (0-4.4); Hematocrit 45.2 % (37.0-47.0); Hemoglobin 14.9 g/dL (12.0-15.0); Immature Granulocyte Absolute 0.03 K/mm3 (0.00-0.031); Immature Granulocyte Percent A 0.4 % (0-0.5); Lymphocytes Absolute Auto 1.42 K/mm3 (0.9-3.2); Lymphocytes Percent Auto 19.5 % (18.3-44.2); Mean Platelet Volume 10.9 fl (7.4-10.4); Monocytes Absolute Auto 0.6 K/mm3 (0.1-0.6); Monocytes Percent Auto 8.5 % (2.6-8.5); Neutrophils Percent Auto 68.2 % (45.5-73.1); Platelet Count Result 203 k/mm3 (150-375); Red Blood Count 4.81 M/mm3 (4.2-5.4); Red Cell Distribution Width 12.2 % (11.5-14.5); White Blood Count 7.3 K/mm3 (4.5-10.0)
[2022-07-16 15:47] LABS: Alanine Aminotransferase 22 U/L (6-35); Albumin Level 4.1 g/dL (3.5-5.1); Alkaline Phosphatase 66 U/L (38-126); Anion Gap 4 mmol/L (8-16); Aspartate Amino Transferase 30 U/L (14-36); Bilirubin,Total 0.5 mg/dL (0.2-1.3); Blood Urea Nitrogen 21 mg/dL (7-17); Calcium 9.9 mg/dL (8.4-10.2); Carbon Dioxide 30 mmol/L (22-30); Chloride 102 mmol/L (98-107); Estimated CRCL calculation 55 ml/min; Estimated Glomerular Filt Rate > 60; Glucose 100 mg/dL (65-110); Lipase 56 U/L (23-300); Potassium 3.7 mmol/L (3.4-5.0); Sodium 136 mmol/L (137-145)
[2022-07-16 15:49] LABS: Prothrombin Time 12.7 Seconds (11.1-14.7)
[2022-07-16 15:50] LABS: Partial Thromboplastin Time 26.2 SECONDS (22.3-36.8)
[2022-07-16 15:58] LABS: Troponin I < 0.012 ng/mL (0.000-0.034)
--- NOTE | 2022-07-16 17:23 | PC.NURSE ---
Pt ambulated to box builder to notify flight operations engineer saw her labs drawn in this ED and advised she can go home. Pt states she will f/u w/ flight operations engineer and no longer wants to wait for an eval. Pt ambulated out w/ daughter in NAD. This RN advised pt to stay for eval w/ EDP as well as have another troponin drawn at due time. Pt declined. A&Ox4 at time of departure.
== END 2022-07-16 17:53 | disposition left against medical advice (07) ==
LOC: ANHED 17:32
PROVIDERS: Emergency Provider Emergency Medicine; PCP Internal Medicine
DX: R07.9 Chest pain, unspecified (principal); R06.02 Shortness of breath; I10 Essential (primary) hypertension
CPT/HCPCS: 36415; 71046; 80053; 83690; 84484; 85025; 85610; 85730; 93005; 99199

== ENCOUNTER 2022-08-09 10:06 | Outpatient (CLI) | payer MEDICARE, SELFPAY ==
[2022-08-09 10:44] LABS: Alanine Aminotransferase 27 U/L (6-35); Albumin Level 4.2 g/dL (3.5-5.1); Alkaline Phosphatase 71 U/L (38-126); Anion Gap 3 mmol/L (8-16); Aspartate Amino Transferase 36 U/L (14-36); Bilirubin,Total 0.5 mg/dL (0.2-1.3); Blood Urea Nitrogen 17 mg/dL (7-17); Calcium 9.7 mg/dL (8.4-10.2); Carbon Dioxide 32 mmol/L (22-30); Chloride 101 mmol/L (98-107); Estimated Glomerular Filt Rate > 60; Glucose 79 mg/dL (65-110); Magnesium 1.9 mg/dL (1.6-2.3); Potassium 3.9 mmol/L (3.4-5.0); Sodium 136 mmol/L (137-145)
[2022-08-09 11:25] LABS: Thyroid Stimulating Hormone 0.034 uIU/mL (0.465-4.680)
[2022-08-09 11:29] LABS: Free T4 Free Thyroxine 1.43 ng/mL (0.78-2.19)
[2022-08-11 21:08] LABS: Triiodothyronine T3 Free 2.5 pg/mL (2.3-4.2)
== END 2022-08-09 10:07 | disposition home or self-care (01) ==
PROVIDERS: PCP Internal Medicine; Visit Provider Internal Medicine
DX: E03.9 Hypothyroidism, unspecified (principal); I48.91 Unspecified atrial fibrillation; R00.2 Palpitations; Z79.899 Other long term (current) drug therapy; I10 Essential (primary) hypertension
CPT/HCPCS: 36415; 80053; 83735; 84439; 84443; 84481

== ENCOUNTER 2022-08-18 00:40 | Day surgery (SDC) | payer MEDICARE, SELFPAY ==
[2022-08-18] VITALS (10 sets, daily range): BP systolic 111–133; BP diastolic 46–88; PULSE 70–83; RESP 14–18; TEMP 36.4–36.7; O2SAT 94–99; BMI 21.4
[2022-08-18 07:55] LABS: Basophils Absolute Auto 0.1 K/mm3 (0.0-0.1); Basophils Percent Auto 1.1 % (0.2-1.2); Eosinophils Absolute Auto 0.2 K/mm3 (0-0.3); Hematocrit 42.3 % (37.0-47.0); Hemoglobin 14.1 g/dL (12.0-15.0); Immature Granulocyte Absolute 0.01 K/mm3 (0.00-0.031); Immature Granulocyte Percent A 0.1 % (0-0.5); Lymphocytes Absolute Auto 1.38 K/mm3 (0.9-3.2); Lymphocytes Percent Auto 18.6 % (18.3-44.2); Mean Corpuscular HGB Conc 33.3 g/dl (32-36); Mean Corpuscular Hemoglobin 30.4 pg (26-34); Mean Corpuscular Volume 91.2 fl (80-100); Mean Platelet Volume 11.1 fl (7.4-10.4); Monocytes Absolute Auto 0.7 K/mm3 (0.1-0.6); Monocytes Percent Auto 8.7 % (2.6-8.5); Neutrophils Absolute Auto 5.1 K/mm3 (1.3-6.7); Neutrophils Percent Auto 68.5 % (45.5-73.1); Platelet Count Result 208 k/mm3 (150-375); Red Blood Count 4.64 M/mm3 (4.2-5.4); Red Cell Distribution Width 12.4 % (11.5-14.5); White Blood Count 7.4 K/mm3 (4.5-10.0)
[2022-08-18 08:04] LABS: Anion Gap 5 mmol/L (8-16); Blood Urea Nitrogen 19 mg/dL (7-17); Calcium 9.2 mg/dL (8.4-10.2); Carbon Dioxide 26 mmol/L (22-30); Chloride 107 mmol/L (98-107); Estimated CRCL calculation 64 ml/min; Estimated Glomerular Filt Rate > 60; Glucose 97 mg/dL (65-110); Potassium 3.9 mmol/L (3.4-5.0); Sodium 138 mmol/L (137-145)
--- NOTE | 2022-08-18 08:35 | WPDHPUPDATE1 ---
History and Physical Update Update Date/Time: 08/18/22 08:35 History and Physical has been reviewed, including an updated exam of the patient. There are NO changes in the patient's condition. Risks, benefits, and alternatives have been discussed and questions answered. Patient agrees to proceed with procedure.
--- NOTE | 2022-08-18 08:35 | WPDMODSED ---
Moderate Sedation Note-Pt Data Patient Data Diagnosis: Chest pain Present Complaint: Chest pain Procedure to be performed/Plan: Coronary angiography, LHC, +/- PCI Allergies Allergy/AdvReac Type Severity Reaction Status Date / Time morphine Allergy Severe Hallucinati Verified 08/18/22 07:14 ng nortriptyline Allergy Unknown Verified 08/18/22 07:32 omeprazole Allergy Unknown Verified 08/18/22 07:32 oxycodone [From OxyContin] Allergy Unknown Verified 08/18/22 07:32 statin Allergy Unknown Joint Pain Uncoded 08/17/22 11:42 Home Medications Medication Instructions Recorded Confirmed Type amlodipine 5 mg tablet 5 mg PO DAILY 07/25/19 08/17/22 History nitroglycerin 0.4 mg sublingual See Rx Instructions .Route 06/02/22 08/17/22 Rx tablet .COMPLEX PRN Chest Pain #30 tabs sulfasalazine 500 mg 0.5 g PO BID 06/02/22 08/17/22 History tablet,delayed release bempedoic acid 180 mg-ezetimibe 10 1 tablet PO DAILY #90 tabs 07/19/22 08/17/22 Rx mg tablet (Nexlizet) apixaban 5 mg tablet (Eliquis) 5 mg PO BID 08/09/22 08/17/22 History budesonide-formoterol HFA 80 2 puff inhalation Q12H 08/09/22 08/17/22 History mcg-4.5 mcg/actuation aerosol inhaler levothyroxine 88 mcg tablet 100 mcg PO DAILY 08/09/22 08/17/22 History metoprolol tartrate 25 mg tablet 12.5 mg PO BID 08/09/22 08/17/22 History potassium chloride 10 mEq 10 meq PO DAILY 08/09/22 08/17/22 History capsule,extended release Current Medications: Active Medications Sodium Chloride (Normal Saline Iv) 500 mls @ 100 mls/hr IV CONT .Q5H IMER Sedation/Anesthesia: No previous sedation/anesthesia problems (including family history). [facility] Past Medical History Medical History A-fib BMI 21.0-21.9, adult Breast cancer screening Colon cancer screening Diverticulitis Dysphagia Encounter for Medicare annual wellness exam Encounter to establish care Essential hypertension GERD (gastroesophageal reflux disease) Heart murmur Hx of Graves' disease Hx of thrombophlebitis Hypothyroidism Microvascular angina Minimal change disease On jail drug therapy Reactive airway disease without complication Rheumatoid arthritis URI (upper respiratory infection) Surgical History Surgical History History of cataract extraction with lens replacement History of cholecystectomy History of partial colectomy For recurrent diverticulitis. History of tonsillectomy History of total replacement of right shoulder joint Family History Family History Father Acute myocardial infarction Hypertension H/O heart surgery Congestive heart failure History of blood clots Mother , DOESNT REMEMBER ANY HEALTH PROBLEMS. No problems noted. Social History Social History Social History: Surrogate decision maker: Aleida Ordoñez, daughter. Code status: Full code. Smoking status: Never smoker Second hand tobacco smoke exposure: Yes Alcohol intake: never Substance use: never Lack of Transportation: No Lack of Food: Never True Current Housing: I Have Housing Concerned About Future Housing: No Difficulty Paying Gas/Electric Bills: No Difficulty Paying for Meds: No Currently Unemployed: No Education: High School Diploma/GED Difficulty w/ Childcare or Family Care: No Living arrangements: alone Additional living arrangements comments: Lives alone. as of June 2021. Occupation/Education: retired Additional occupation/education comments: Retired. Gender identity (if verbalized by the patient): Female Spiritual care concerns: No Mod Sed Physical Exam Physical Exam Pre Procedural Exam: Normal: Appearance, Lungs, Heart Rate, Heart Rhythm, Neuro Exam, Abdomen, Extremities and Skin Hours since solid foods: 12 Hour
--- NOTE | 2022-08-18 08:36 | WPDCARDPROC ---
Cardiac Cath Procedure Note Date of procedure:: 08/18/22 Performing physician:: CATHETERIZATION LABORATORY REPORT Procedure Date: 08/18/2022 Floor Runner: Narda Coley M.D., [facility]? Referring Physician: Dr. Juan Carlos Santos ? Anesthesia: Versed and Fentanyl were ordered and given in my presence at 08:47, procedure ended at 09:02. Supervision of nurse monitored moderate sedation with Versed and Fentanyl was provided for 15 minutes. Total of Versed 3mg and Fentanyl 75mcg were administered by the Pack Master RN Shweta Vila. Pre-op Diagnosis: Coronary artery disease Post-op Diagnosis: 1. Moderate ostial-proximal LAD disease. Moderate proximal-mid LAD disease. Significant obstructive disease of ostial Diagonal-1. 2. Moderate mid Ramus disease. 3. Mild mid RCA disease 4. Left ventricular end-diastolic pressure of 9mmHg Procedure(s): Left heart catheterization with coronary angiography Access Site: Right radial artery Brief History and Clinical Indications: Patient is a 72-year-old female who is referred for coronary angiography for ischemic evaluation for chest pain. All risks, benefits and alternatives to left heart catheterization with or without percutaneous coronary intervention was discussed at length with the patient. Risk of complications including but not limited to bleeding, infection, arrhythmia, stroke, worsening kidney function, blood loss, groin hematoma, limb loss, emergency coronary artery bypass grafting, and even were discussed with the patient and all questions were answered. The patient understood and wished to proceed. Time out called, patient name, date of , medical record number, allergies, procedure performed, identify Floor Runner, patient and staff member concurred with accurate data, procedure carried on. Findings: LEFT HEART CATHETERIZATION FINDINGS: 1. Left main: The left main coronary artery is widely patent without any significant obstructive disease. 2. Left anterior descending: The ostial-proximal LAD has moderate 50% stenosis. The proximal-mid LAD has a 50-60% stenosis immediately proximal to the takeoff of the first diagonal branch. The first diagonal branch is a large caliber vessel with ostial 80-90% stenosis. The mid portion of the diagonal branch has mild disease. 3. Ramus: There is a large caliber Ramus vessel with moderate 50% stenosis in its mid portion. 3. Left circumflex: The left circumflex artery and the main marginal branches have mild luminal irregularities without any significant obstructive angiographic disease. 4. Right coronary artery: The RCA is the dominant vessel. The mid portion of the RCA has a focal 20% mild stenosis. Rest of the RCA has mild luminal irregularities. 5. Left ventricle: A. End-diastolic pressure 9mmHg. B. LV gram deferred. C. No significant gradient across aortic valve on catheter pullback. Description of Procedure: Informed consent signed and placed in the chart. Patient transferred to electroplating laborer room. Prepped and draped in usual sterile fashion. 2% lidocaine injected subcutaneously in right wrist area. 22-gauge venipuncture catheter used to access the right radial artery with the Seldinger technique. 6-FR slender sheath placed in right radial artery. Nitroglycerine and Verapamil were given intraarterial through the sheath. Versacore wire advanced under fluoroscopy 5F Tig 4 diagnostic catheter engaged Left Main Coronary Artery. 5F Tig 4 diagnostic catheter engaged Right Coronary Artery Multiple orthogonal angiogram obtained and reviewed 5F Tig 4 diagnostic catheter crossed aortic valve to obtain LVEDP, LV angiogram deferred. Hemostasis was achieved by application of TR band. ? Assessment: 1. Moderate ostial-proximal LAD disease. Moderate proximal-mid LAD disease. Significant obstructive disease of ostial Diagonal-1. 2. Moderate mid Ramus disease. 3. Mild mid RCA disease 4. Left ventricular end-diastolic pressure of 9mmHg Post Operativ
== END 2022-08-18 12:10 | disposition home or self-care (01) ==
PROVIDERS: PCP Internal Medicine; Visit Provider Internal Medicine
PROC: 4A023N7 Measurement of Cardiac Sampling and Pressure, Left Heart, Percutaneous Approach (ICD-10-PCS; CPT 93452; principal; 2022-08-18 08:30)
DX: I25.10 Atherosclerotic heart disease of native coronary artery without angina pectoris (principal); R07.9 Chest pain, unspecified; I48.91 Unspecified atrial fibrillation; I10 Essential (primary) hypertension; K21.9 Gastro-esophageal reflux disease without esophagitis; E03.9 Hypothyroidism, unspecified; M06.9 Rheumatoid arthritis, unspecified; J45.909 Unspecified asthma, uncomplicated; Z90.49 Acquired absence of other specified parts of digestive tract; Z79.01 Long term (current) use of anticoagulants; Z79.51 Long term (current) use of inhaled steroids
CPT/HCPCS: 36415; 80048; 85025; 93458; A9270; C1769; C1887; C1894; J1644; J2250; J3010; J7040

== ENCOUNTER 2022-08-23 08:02 | Outpatient (CLI) | payer MEDICARE, SELFPAY ==
--- NOTE | ~2022-08-23 | XR_ITS ---
EXAMINATION: XR barium swallow modified DATE: 08/23/2022 08:47 INDICATION: Dysphagia. TECHNIQUE: The patient was given barium-containing material of multiple consistencies to swallow by t he speech pathologist while I performed fluoroscopy. Fluoroscopy exposure time was 0.7 minutes. The n umber of fluoroscopy images saved to the PACS was 1. Dose-area product was 0.462 Gy-cm^2. FINDINGS: There is mild pharyngeal wall residue. IMPRESSION: 1. No laryngeal penetration or aspiration. 2. Please refer to the speech therapy report for recommendations. Reviewed, dictated and finalized at location A. CH BINDING FOLDER
--- NOTE | 2022-08-23 09:07 | REHSTMBS ---
Assessment and note entered by Marce Tanner, TUBE AND ROD STRAIGHTENER Modified Barium Swallow Evaluation Feeding Type Recommended Oral Food Consistency Regular, Level 7 Liquid Consistency Thin (0) ST Clinical Summary MODIFIED BARIUM SWALLOW STUDY This patient was seen for a Modified Barium Swallow study to assess patient's swallowing and risk for aspiration. She reports that in the past year, worsening in the past six months, at various times of day she states she cannot breathe and cannot swallow. Patient reports this occurs at random times during the day as well as at night when she awakens from sleep. She denied difficulty swallowing liquids and solids. Patient also reports a random cough and a hoarse voice. Patient reports a history of a-fibrillation and high blood pressure with other various heart and lung issues being explored. Today the patient was presented with thin liquid contrast medium on several occasions, pudding mixed with semi-solid contrast medium, and cracker coated with the semi-solid mixture. Patient exhibited no evidence of penetration or aspiration and only mild vallecular residue with trace residue at the level of the pyriform sinus/base of throat. This residue cleared with liquid wash. Results indicate this patient's swallowing skills are grossly within normal limits and she may remain on a Regular Diet with Regular Liquids. When muscles are tense, or she feels she cannot breath, she was instructed in the sniff procedure (sniff in through nose, exhale through mouth) in order to facilitate relaxation of the swallowing muscles. She was also instructed in the use of head flexion when swallowing and she stated she realizes she has already been utilizing this compensatory strategy when swallowing. Patient is referred back to her physician for further assessment of her complaints. Thank you for this referral.
== END 2022-08-23 08:03 | disposition home or self-care (01) ==
LOC: ANHIMG 08:04
PROVIDERS: PCP Internal Medicine; Visit Provider Internal Medicine
DX: R13.10 Dysphagia, unspecified (principal)
CPT/HCPCS: 92611

== ENCOUNTER 2022-11-03 12:51 | Outpatient (CLI) | payer MEDICARE, SELFPAY ==
--- NOTE | 2022-11-04 12:47 | WPDMETH ---
Methacholine Procedure Perform Procedure Performed Methacholine Challenge Methacholine Challenge Methacholine Challenge: DOS: 11/03/2022 REQUESTING: Ambrose Jacob M.D. REASON FOR TESTING: Chornic cough METHACHOLINE CHALLENGE This test was conducted per ATS guidelines. A previous study on May 26, 2021 showed normal spirometry. The patient was exposed to sequentially increasing doses of methacholine in the usual manner. Level 0 - saline Level 1 - 1.81 mcg Level 2 - 7.26 mcg Level 3 - 29.03 mcg The test was stopped after the third dose of methacholine with a 28% drop in the FEV1. A decrease of 20% in the FEV1 is a positive result, and the testing is terminated. Flows returned to normal after bronchodilator was administered. IMPRESSION: This is a positive methacholine challenge with the PD20 290.03 mcg on the 3rd level. The best use for a methacholine challenge is to rule out asthma. Clinical correlation is advised. Marce Ceron MD
== END 2022-11-03 12:52 | disposition home or self-care (01) ==
PROVIDERS: PCP Internal Medicine; Visit Provider Internal Medicine Pulmonary Disease
DX: R06.02 Shortness of breath (principal)
CPT/HCPCS: 94070; J7674

== ENCOUNTER 2022-12-13 10:41 | Outpatient (CLI) | payer MEDICARE, SELFPAY ==
[2022-12-13 11:28] LABS: Basophils Absolute Auto 0.1 K/mm3 (0.0-0.1); Basophils Percent Auto 1.2 % (0.2-1.2); Eosinophils Absolute Auto 0.2 K/mm3 (0-0.3); Eosinophils Percent Auto 2.4 % (0-4.4); Hematocrit 42.8 % (37.0-47.0); Immature Granulocyte Absolute 0.03 K/mm3 (0.00-0.031); Immature Granulocyte Percent A 0.5 % (0-0.5); Lymphocytes Absolute Auto 1.36 K/mm3 (0.9-3.2); Lymphocytes Percent Auto 20.4 % (18.3-44.2); Mean Corpuscular HGB Conc 32.7 g/dl (32-36); Mean Corpuscular Hemoglobin 31.4 pg (26-34); Mean Platelet Volume 11.7 fl (7.4-10.4); Monocytes Absolute Auto 0.7 K/mm3 (0.1-0.6); Monocytes Percent Auto 10.5 % (2.6-8.5); Neutrophils Absolute Auto 4.3 K/mm3 (1.3-6.7); Platelet Count Result 222 k/mm3 (150-375); Red Blood Count 4.46 M/mm3 (4.2-5.4); White Blood Count 6.7 K/mm3 (4.5-10.0)
[2022-12-13 12:20] LABS: Free T4 Free Thyroxine 1.49 ng/mL (0.78-2.19)
== END 2022-12-13 10:42 | disposition home or self-care (01) ==
PROVIDERS: PCP Internal Medicine; Visit Provider Internal Medicine
DX: R53.83 Other fatigue (principal); I10 Essential (primary) hypertension; Z79.899 Other long term (current) drug therapy
CPT/HCPCS: 36415; 84439; 84443; 85025

== ENCOUNTER 2023-03-06 10:04 | Outpatient (CLI) | payer MEDICARE, SELFPAY ==
[2023-03-06 10:43] LABS: Basophils Absolute Auto 0.1 K/mm3 (0.0-0.1); Basophils Percent Auto 0.9 % (0.2-1.2); Eosinophils Absolute Auto 0.1 K/mm3 (0-0.3); Eosinophils Percent Auto 1.4 % (0-4.4); Hematocrit 40.2 % (37.0-47.0); Hemoglobin 13.1 g/dL (12.0-15.0); Immature Granulocyte Absolute 0.01 K/mm3 (0.00-0.031); Immature Granulocyte Percent A 0.2 % (0-0.5); Lymphocytes Absolute Auto 1.05 K/mm3 (0.9-3.2); Mean Corpuscular HGB Conc 32.6 g/dl (32-36); Mean Corpuscular Hemoglobin 31.5 pg (26-34); Mean Corpuscular Volume 96.6 fl (80-100); Mean Platelet Volume 11.7 fl (7.4-10.4); Monocytes Absolute Auto 0.5 K/mm3 (0.1-0.6); Monocytes Percent Auto 7.9 % (2.6-8.5); Neutrophils Absolute Auto 4.2 K/mm3 (1.3-6.7); Neutrophils Percent Auto 71.6 % (45.5-73.1); Platelet Count Result 172 k/mm3 (150-375); Red Blood Count 4.16 M/mm3 (4.2-5.4); White Blood Count 5.8 K/mm3 (4.5-10.0)
[2023-03-06 10:56] LABS: Alanine Aminotransferase 25 U/L (6-35); Alkaline Phosphatase 51 U/L (38-126); Anion Gap 3 mmol/L (8-16); Aspartate Amino Transferase 37 U/L (14-36); Bilirubin,Total 0.7 mg/dL (0.2-1.3); Blood Urea Nitrogen 23 mg/dL (7-17); Calcium 9.6 mg/dL (8.4-10.2); Carbon Dioxide 31 mmol/L (22-30); Chloride 103 mmol/L (98-107); Cholesterol 155 mg/dL (0-200); Estimated Glomerular Filt Rate > 60; Glucose 90 mg/dL (65-110); HDL Direct 34 mg/dL; Potassium 4.3 mmol/L (3.4-5.0); Sodium 137 mmol/L (137-145); Triglycerides 270 mg/dL (<150)
[2023-03-06 11:07] LABS: LDL Cholesterol Direct 74 mg/dL
[2023-03-06 12:03] LABS: Folic Acid > 20.0 ng/mL (2.76->20); Vitamin B12 > 1000.0 pg/mL (239-931)
[2023-03-06 12:07] LABS: Free T4 Free Thyroxine 1.49 ng/mL (0.78-2.19); Vitamin D 25 Hydroxy 38.4 ng/mL
[2023-03-10 14:34] LABS: Vitamin B6 9.7 ng/mL (2.1-21.7)
[2023-03-10 15:47] LABS: Vitamin B1 7 nmol/L (8-30)
== END 2023-03-06 10:05 | disposition home or self-care (01) ==
LOC: ANHLAB 10:06
PROVIDERS: PCP Internal Medicine; Visit Provider Internal Medicine
DX: E03.9 Hypothyroidism, unspecified (principal); I10 Essential (primary) hypertension; E78.2 Mixed hyperlipidemia; E53.9 Vitamin B deficiency, unspecified; E55.9 Vitamin D deficiency, unspecified
CPT/HCPCS: 36415; 80053; 80061; 82306; 82607; 82746; 84207; 84252; 84425; 84439; 84443; 85025

== ENCOUNTER 2023-03-14 08:04 | Outpatient (CLI) | payer MEDICARE, SELFPAY ==
--- NOTE | ~2023-03-14 | SLEEP.INT_ITS ---
Split Night Report Patient Name: ELIS ROSA Study Date: 03/14/2023 Referring Physician: Andre Houston MD Indications for Polysomnography The patient is a 72 year old female who is 5' 4 and weighs 124.0 lbs. Her BMI equals 21.4. ESS = 5 . A split night polysomnogram was performed to evaluate for obstructive sleep apnea. After 123.0 minutes of sleep ti me, the patient exhibited sufficient respiratory events qualifying her for a CPAP trial which was then initiated. Sleep History Elis Rosa is a 72-year-old woman who developed cardiac disease about a year and half ago. Since then, she has been placed on several new medications. She can no longer sleep 7 to 8 hours as she previously did. At best, she can gets 5-6 hours of interrupted sleep. She has asthma, frequently awakens from sleep feeling short of b reath. She frequently has coughing at night. She is not sure if she snores. She was in 2020. She occa sionally has difficulty sleeping with a cold. She frequently wakes up gasping for breath at night. Occasionally she has breathing problems at night that she notices but nobody has reported to her that she stops breathing at night. She constantly falls asleep during the day, occasionally falls asleep involuntarily. She never falls asleep while driving . She does not have loss of muscle tone with strong emotion. She does not have daytime difficulties due to excessive sle epiness. She does not feel paralyzed on waking or falling asleep. She does not have vivid dreamlike scenes on waking o r falling asleep. She does not feel afraid to go to sleep. She denies nightmares. She does not remember her dreams. She occasionally has racing thoughts. She rarely feels sad, depressed, or anxious. She does not have muscular tensio n. She does not notice parts of her body jerking. She does not kick at night. She does not have crawling or aching feelings in her legs or any kind of leg pain at night. She does not have morning jaw pain. She does not grind her teeth at night. She is bothered by left shoulder pain during the day and occasionally bothered with pain at night. She rare ly wakes up feeling stiff in the morning with sore achy muscles. She has fatigue. Normal bedtime is between 9:00 p.m. and 11:30 p.m., and the amount of time to fall asleep is variable . She may wake up at most 3 times during the night. If she wakes after 4:00 a.m., it is not likely that she will be able to return to sleep. If she wakes earlier during the night a takes a variable amount of time for her to return to sleep. The se awakenings occur in the middle of the night and in the contact center specialist hours, sometimes both. If she is not able to ret urn to sleep, she watches television. She wakes the morning between 4:00 a.m. and 5:30 a.m. On weekends, she may stay awake until 12 midnight. She still wakes early in the morning on weekends, between 4:00 am and 5:30 a.m. She ta kes naps in the afternoon or evening only when she has a very difficult time staying awake, not every day. A short n ap lasting 10 or 15 minutes is not refreshing. She is usually drowsy for 3 hours or longer after waking up. She occasio james has morning headaches. Habits: Never smoked. Caffeine: one cup in the morning. Alcohol: seldom. No recreational substance. Medical History Asthma Atrial fibrillation Hypertension Gastroesophageal reflux disease Hypothyroidism Rheumatoid arthritis Medications nitroglycerin 0.4 mg sublingual tablet p.r.n. chest pain bempedoic acid 180 mg-ezetimibe 10 mg tablet (Nexlizet) 1 tablet PO DAILY losartan 50 mg one daily amlodipine 5 mg tablet one daily apixaban 5 mg tablet (Eliquis) one b.i.d. budesonide-formoterol HFA 160 mcg-4.5 mcg/actuation aerosol inhaler (Symbicort) albuterol sulfate 90 mcg/actuation aerosol inhaler 2 inh inhalation Q4H PRN shortness of breath or wh e
== END 2023-03-15 06:00 | disposition home or self-care (01) ==
LOC: ANHCSM 08:04
PROVIDERS: PCP Internal Medicine; Visit Provider Internal Medicine
DX: G47.33 Obstructive sleep apnea (adult) (pediatric) (principal); G47.10 Hypersomnia, unspecified
CPT/HCPCS: 95811

== ENCOUNTER 2023-05-03 13:18 | Outpatient (CLI) | payer MEDICARE, SELFPAY ==
--- NOTE | ~2023-05-03 | XR_ITS ---
EXAMINATION: XR chest 2V 05/03/2023 13:41 INDICATION: Chronic cough PROCEDURE: 2 view chest COMPARISON: 07/16/2022 FINDINGS: The lungs are clear. The cardiomediastinal silhouette is within normal limits. There are no pleural effusions. There is no pneumothorax suspected. There are calcified left hilar lymph node s, consistent with chronic granulomatous disease. There is a right shoulder arthroplasty. IMPRESSION: 1: NO ACUTE CARDIOPULMONARY DISEASE. Reviewed, dictated and finalized at location B.
== END 2023-05-03 13:19 | disposition home or self-care (01) ==
LOC: ANHIMG 13:23
PROVIDERS: PCP Internal Medicine; Visit Provider Internal Medicine
DX: R05.9 Cough, unspecified (principal)
CPT/HCPCS: 71046

== ENCOUNTER 2023-05-08 14:17 | Outpatient (CLI) | payer MEDICARE, SELFPAY ==
--- NOTE | ~2023-05-08 | CT_ITS ---
EXAMINATION: CTA chest PE protocol DATE: 05/08/2023 14:40 INDICATION: Shortness of breath, dyspnea. TECHNIQUE: Computed tomography angiography (CTA) of the chest was performed with 100 mL Omnipaque-350 intravenous contrast timed to evaluate the pulmonary arteries. Coronal maximum intensity projection 3D-reconstructions were created by the technologist. Automated exposure control and iterative reconst ruction technique were employed. Exam dose: 179.58 mGy-cm total exam DLP. COMPARISON: 05/03/2023 2 view chest 01/09/2020 CT chest FINDINGS: There is diagnostic contrast enhancement of the pulmonary arteries and no evidence of pulmo nary embolism. No thoracic aortic aneurysm or dissection. There is aortic and great vessel and coronary artery calci fication. Cardiomegaly. Small pericardial effusion. No hilar or mediastinal mass lesion or lymphadenopathy. Scattered bilateral pulmonary calcified granulomas and bilateral calcified hilar and mediastinal lymp h nodes consistent with old granulomatous disease. Mild bilateral apical scarring. No pulmonary infiltrate or consolidation or pulmonary mass lesion is detected. Status post cholecystectomy. Normal morphology of the adrenal glands. Small sliding hiatal hernia. Right glenohumeral joint replacement. Severe osteoarthritic change at the left glenohumeral joint. IMPRESSION: No evidence of pulmonary embolism Small pericardial effusion. Cardiomegaly Reviewed, dictated and finalized at Location A. Reviewed, dictated and finalized at location B.
[2023-05-08 14:36] LABS: Estimated Glomerular Filt Rate 55
== END 2023-05-08 14:18 | disposition home or self-care (01) ==
PROVIDERS: PCP Internal Medicine; Visit Provider Internal Medicine
DX: R06.09 Other forms of dyspnea (principal); I31.39 Other pericardial effusion (noninflammatory); I51.7 Cardiomegaly
CPT/HCPCS: 71275; Q9967

== ENCOUNTER → 2023-05-10 12:15 | Outpatient (CLI) | payer MEDICARE, SELFPAY ==
--- NOTE | ~2023-05-10 | US_ITS ---
EXAMINATION: US transvaginal DATE: 05/10/2023 12:52 INDICATION: Postmenopausal abnormal uterine bleeding. TECHNIQUE: Multiple transvaginal sonographic images of the pelvis were obtained. COMPARISON: None. FINDINGS: The uterus measures 5.6 x 3.0 x 3.9 cm. There is no free fluid in the pelvis. The endometrial complex measures 6 mm in thickness. The ovaries are not visualized. IMPRESSION: 1. Mildly thickened endometrial complex. The differential diagnosis includes endometrial hyperplasia, polyp, and carcinoma. Biopsy is recommended. Reviewed, dictated and finalized at location E. IMPRESSION: 1. Mildly thickened endometrial complex. The differential diagnosis includes en dometrial hyperplasia, polyp, and carcinoma. Biopsy is recommended.
== END ==
PROVIDERS: PCP Physical Medicine & Rehabilitation; Visit Provider Physical Medicine & Rehabilitation
DX: N93.9 Abnormal uterine and vaginal bleeding, unspecified (principal); R93.89 Abnormal findings on diagnostic imaging of other specified body structures
CPT/HCPCS: 76830

== ENCOUNTER 2023-05-17 16:03 | Outpatient (CLI) | payer MEDICARE, SELFPAY ==
[2023-05-17 17:13] LABS: Basophils Absolute Auto 0.1 K/mm3 (0.0-0.1); Basophils Percent Auto 0.7 % (0.2-1.2); Eosinophils Absolute Auto 0.1 K/mm3 (0-0.3); Eosinophils Percent Auto 1.1 % (0-4.4); Hematocrit 41.3 % (37.0-47.0); Hemoglobin 13.2 g/dL (12.0-15.0); Immature Granulocyte Absolute 0.05 K/mm3 (0.00-0.031); Immature Granulocyte Percent A 0.5 % (0-0.5); Lymphocytes Absolute Auto 1.94 K/mm3 (0.9-3.2); Lymphocytes Percent Auto 18.1 % (18.3-44.2); Mean Corpuscular Hemoglobin 31.7 pg (26-34); Mean Platelet Volume 11.1 fl (7.4-10.4); Monocytes Absolute Auto 0.7 K/mm3 (0.1-0.6); Monocytes Percent Auto 6.8 % (2.6-8.5); Neutrophils Absolute Auto 7.8 K/mm3 (1.3-6.7); Neutrophils Percent Auto 72.8 % (45.5-73.1); Platelet Count Result 253 k/mm3 (150-375); Red Blood Count 4.17 M/mm3 (4.2-5.4); Red Cell Distribution Width 12.2 % (11.5-14.5); White Blood Count 10.7 K/mm3 (4.5-10.0)
[2023-05-17 17:27] LABS: Alanine Aminotransferase 23 U/L (6-35); Albumin Level 4.2 g/dL (3.5-5.1); Alkaline Phosphatase 49 U/L (38-126); Anion Gap 8 mmol/L (8-16); Aspartate Amino Transferase 28 U/L (14-36); Bilirubin,Total 0.5 mg/dL (0.2-1.3); Blood Urea Nitrogen 29 mg/dL (7-17); CRP < 0.5 mg/dL (<1.0); Calcium 10.8 mg/dL (8.4-10.2); Carbon Dioxide 30 mmol/L (22-30); Chloride 103 mmol/L (98-107); Estimated Glomerular Filt Rate > 60; Glucose 97 mg/dL (65-110); Potassium 3.9 mmol/L (3.4-5.0); Sodium 141 mmol/L (137-145); Uric Acid 4.7 mg/dL (2.5-7.5)
[2023-05-17 17:56] LABS: Erythrocyte Sedimentation Rate 9 mm/hr (0-20)
== END 2023-05-17 16:04 | disposition home or self-care (01) ==
PROVIDERS: PCP Physical Medicine & Rehabilitation
DX: M19.90 Unspecified osteoarthritis, unspecified site (principal); Z79.899 Other long term (current) drug therapy
CPT/HCPCS: 36415; 80053; 84550; 85025; 85652; 86140

== ENCOUNTER 2023-05-24 09:22 | Outpatient (CLI) | payer MEDICARE, SELFPAY ==
--- NOTE | ~2023-05-24 | CT_ITS ---
EXAMINATION: CT soft tissue neck w con DATE: 05/24/2023 09:57 INDICATION: Dysphonia. TECHNIQUE: Computed tomography (CT) of the neck was performed with 75 mL Omnipaque-350 intravenous co ntrast. Automated exposure control and iterative reconstruction technique were employed. The dose-cuco gth product was 400.59 mGy-cm. COMPARISON: Chest CT 05/08/2023 FINDINGS: There is mild scarring at the lung apices. There are likely changes of ocular lens replacem ent surgeries. There are no pathologically enlarged lymph nodes. The cervical carotid arteries are no rmal. There is a right shoulder arthroplasty. There is moderate cervical spondylosis and severe thora cic spondylosis. IMPRESSION: 1. No evidence of malignancy. Reviewed, dictated and finalized at location E.
== END 2023-05-24 09:23 | disposition home or self-care (01) ==
PROVIDERS: PCP Internal Medicine; Visit Provider Internal Medicine
DX: R49.0 Dysphonia (principal); R06.02 Shortness of breath
CPT/HCPCS: 70491; Q9967

== ENCOUNTER 2023-06-29 01:40 | Day surgery (SDC) | payer MEDICARE, SELFPAY ==
[2023-06-26 11:18] VITALS: BMI 21.3
--- NOTE | 2023-06-26 11:26 | PC.NURSE ---
Addendum entered by Miguelina Chun RN 06/27/23 09:42: RECEIVED VM FROM PT THIS AM REQUESTING WE CONTACT DR. PRESCOTT OFFICE RE: HOLDING ELIQUIS. CONTACTED CRYSTAL AT DR. BRAGG'S OFFICE, STATES PT WAS TOLD TO CONTACT DR. PRESCOTT OFFICE FOR INSTRUCTIONS. [id number] PRESCOTT' OFFICE, STATES SPOKE TO PT YESTERDAY EVENING AND INSTRUCTED TO HOLD X 2 DAYS. Original Note: Report to the Outpatient Waiting Room, entrance under the green pavilion located off [facility], at time __0630 on date __06/29/23 . Planned Procedure Time: ___829 . Time changes happen often and if your time is changed the preop area will call you the afternoon before. - You and your visitor will be asked to self-screen and do not enter if you have any COVID symptoms. - A mask is optional within the hospital at this time. Patients may have clear liquids (water, carbonated beverages, clear teas, apple juice) until 3 hours prior to surgery (0530 AM) with a maximum of 20 ounces. - No food from midnight until time of surgery - Infants may have breast milk until 4 hours before surgery, formula 6 hours prior to surgery. - Children will be allowed to drink immediately following surgery. If applicable, please bring a bottle or sippy cup to assist with drinking. Juice, water, soda, and popsicles are readily available. For infants on formula, please bring formula the day of surgery. Pacifiers are allowed. Take the following medications with a SIP of water the morning of surgery: _AMLODIPINE, LEVOTHYROXINE & TRELEGY INHALER, NITROGLYCERIN IF NEEDED__ DO NOT STOP ANY OF YOUR OTHER PRESCRIPTION MEDICATIONS PRIOR TO SURGERY ?EXCEPT THE FOLLOWING Medications to discontinue - _LILAIS - CALL DR. BRAGG'S OFFICE FOR INSTRUCTIONS, Date to take last dose Please no make-up, nail romanian, hairspray, perfume, deodorant, or body powder the day of surgery. No jewelry (including any body piercings) or valuables the day of surgery, leave them at home. Please take a shower or bath the night before, or the morning of, surgery with an antibacterial soap. Wear comfortable, loose fitting clothing. Children are encouraged to wear pajamas. - Jewelry must be removed prior to entering the operating room. Rings and piercings that are not removed may be cut off. - The hospital will not accept responsibility for valuables. - Please leave all valuables, including medications, at home the day of surgery. If you are going home after surgery, a licensed driver license technician must drive you home. - NO public transportation without another adult if you receive anesthesia. - We recommend that an adult stay with you for 24 hours following discharge. - We also recommend that you do not drive, make important decision, drink alcoholic beverages, or take any drugs that were not prescribed by your health care provider for at least 24 hours after your discharge time. For Pediatric surgeries, we recommend two adults accompany the child home. Follow any additional instructions given to you from your surgeon. If you or anyone in your household have experienced Covid symptoms in the past week, please notify your surgeon or the nurse liaison at the phone number below for possible testing. Telephone instructions given to ____PT and asked if any additional questions and then verbalized understanding. Patient advised to call surgeon office or pre surgery nurse liaison [phone] if any additional questions.
--- NOTE | 2023-06-28 13:55 | PM.IMHP ---
H&P: HPI History of Present Illness Date/Time: 06/28/23 13:55 73-year-old female presents for evaluation of postmenopausal bleeding. It has been well over 20 years since her last cycle and had bleeding heavy for a week in late April. Ultrasound showed mildly thickened endometrium at 6mm. Has had no significant bleeding since that time. Due to the bleeding and slightly thickened endometrial cavity we will be proceeding with visual exam as well as tissue sampling. Chief Complaint: postmenopausal bleeding Review of Systems Review of Systems: All systems reviewed & are unremarkable except as noted in HPI and below PMFSH Past Medical History Medical History A-fib BMI 20.0-20.9, adult BMI 21.0-21.9, adult Breast cancer screening Colon cancer screening Diverticulitis PAULINO (dyspnea on exertion) Dysphagia Encounter for Medicare annual wellness exam Encounter for routine adult health examination with abnormal findings Encounter to establish care Essential hypertension Fatigue Follow up GERD (gastroesophageal reflux disease) Heart murmur Hx of Graves' disease Hx of thrombophlebitis Hypersomnolence Hypothyroidism Infection of nail Microvascular angina Minimal change disease On intermediate card tender drug therapy Reactive airway disease without complication Rheumatoid arthritis SOB (shortness of breath) URI (upper respiratory infection) Surgical History Surgical History History of cataract extraction with lens replacement History of cholecystectomy History of partial colectomy For recurrent diverticulitis. History of tonsillectomy History of total replacement of right shoulder joint Family History Family History Father Acute myocardial infarction Hypertension H/O heart surgery Congestive heart failure History of blood clots Mother , DOESNT REMEMBER ANY HEALTH PROBLEMS. No problems noted. Social History Social History Social History: Surrogate decision maker: Aleida Ordoñez, daughter. Code status: Full code. Smoking status: Never smoker Second hand tobacco smoke exposure: No Alcohol intake: never Substance use: never Substance use type: does not use Lack of Transportation: No Lack of Food: Never True Current Housing: I Have Housing Concerned About Future Housing: No Difficulty Paying Gas/Electric Bills: No Difficulty Paying for Meds: No Currently Unemployed: No Education: High School Diploma/GED Difficulty w/ Childcare or Family Care: No Living arrangements: alone Additional living arrangements comments: Lives alone. as of June 2021. Occupation/Education: retired Additional occupation/education comments: Retired. Gender identity (if verbalized by the patient): Female Spiritual care concerns: No Meds Home Medications and Allergies Home Medications Medication Instructions Recorded Confirmed Type nitroglycerin 0.4 mg sublingual See Rx Instructions .Route 06/02/22 06/26/23 Rx tablet .COMPLEX PRN Chest Pain #30 tabs apixaban 5 mg tablet (Eliquis) See Rx Instructions .Route 04/10/23 06/26/23 Rx .COMPLEX #60 tabs amlodipine 5 mg tablet See Rx Instructions .Route 04/18/23 06/26/23 Rx .COMPLEX #90 tabs losartan 50 mg tablet See Rx Instructions .Route 04/18/23 06/26/23 Rx .COMPLEX #90 tabs progesterone micronized 200 mg 200 mg PO QHS 05/17/23 06/26/23 History capsule bempedoic acid 180 mg-ezetimibe 10 1 tablet PO DAILY #90 tabs 06/12/23 06/26/23 Rx mg tablet (Nexlizet) levothyroxine 100 mcg tablet See Rx Instructions .Route 06/12/23 06/26/23 Rx .COMPLEX #90 tabs potassium chloride 10 mEq See Rx Instructions .Route 06/12/23 06/26/23 Rx capsule,extended release .COMPLEX #90 caps ondansetron HCl 8 mg tabl
--- NOTE | 2023-06-29 07:21 | WPDHPUPDATE1 ---
History and Physical Update Update Date/Time: 06/29/23 07:21 History and Physical has been reviewed, including an updated exam of the patient. There are NO changes in the patient's condition. Risks, benefits, and alternatives have been discussed and questions answered. Patient agrees to proceed with procedure.
[2023-06-29 07:47] VITALS: BP 141/114; PULSE 69; RESP 16; TEMP 36.5; O2SAT 98
--- NOTE | 2023-06-29 07:59 | WPDANESEPPF ---
Anes - Initial Pre Proc Eval Procedure: Operation Date: 06/29/23 09:15 Proposed Procedures p Hysteroscopy, Dilation and Curettage - Harpreet Perez MD Date/Time: 06/29/23 07:59 Surgeon: Harpreet Perez MD Pre Op Diagnosis: post menopausal bleeding Patient Data Age: 73 Gender: F Height: 1.63 m Weight: 57.9 kg Last Vital Signs Temp 36.5 C 06/29/23 07:47 Pulse 69 06/29/23 07:47 Resp 16 06/29/23 07:47 BP 141/114 H 06/29/23 07:47 Pulse Ox 98 06/29/23 07:47 O2 Del Method Room Air 06/29/23 07:47 Allergies Allergy/AdvReac Type Severity Reaction Status Date / Time morphine Allergy Severe Hallucinati Verified 06/29/23 07:45 ng nortriptyline Allergy Unknown-UNABLE Verified 06/29/23 07:45 TO RECALL omeprazole Allergy Unknown-UNABLE Verified 06/29/23 07:45 TO RECALL oxycodone [From OxyContin] Allergy Nausea & SIMON Verified 06/29/23 07:45 statin Allergy Unknown Joint Pain Uncoded 06/29/23 07:45 Home Medications Medication Instructions Recorded Confirmed Type nitroglycerin 0.4 mg sublingual See Rx Instructions .Route 06/02/22 06/29/23 Rx tablet .COMPLEX PRN Chest Pain #30 tabs apixaban 5 mg tablet (Eliquis) See Rx Instructions .Route 04/10/23 06/29/23 Rx .COMPLEX #60 tabs amlodipine 5 mg tablet See Rx Instructions .Route 04/18/23 06/29/23 Rx .COMPLEX #90 tabs losartan 50 mg tablet See Rx Instructions .Route 04/18/23 06/29/23 Rx .COMPLEX #90 tabs progesterone micronized 200 mg 200 mg PO QHS 05/17/23 06/29/23 History capsule bempedoic acid 180 mg-ezetimibe 10 1 tablet PO DAILY #90 tabs 06/12/23 06/29/23 Rx mg tablet (Nexlizet) levothyroxine 100 mcg tablet See Rx Instructions .Route 06/12/23 06/29/23 Rx .COMPLEX #90 tabs potassium chloride 10 mEq See Rx Instructions .Route 06/12/23 06/29/23 Rx capsule,extended release .COMPLEX #90 caps ondansetron HCl 8 mg tablet 8 mg PO QID PRN nausea and 06/13/23 06/29/23 Rx vomiting #30 tabs fluticasone fur. 200 mcg-umeclid 1 inh inhalation DAILY PRN Wheezing 06/26/23 06/29/23 History 62.5 mcg-vilant 25 mcg inhalat.powder (Trelegy Ellipta) metoprolol succinate 25 mg 25 mg PO DAILY #90 tabs 06/27/23 06/29/23 Rx tablet,extended release 24 hr Patient hx anesthesia problems: none Family hx anesthesia problems: none Results Review: All pre-operative results and documents have been reviewed as part of the pre-operative evaluation. FOR[facility]LY [facility] Past Medical History Medical History A-fib BMI 20.0-20.9, adult BMI 21.0-21.9, adult Breast cancer screening Colon cancer screening Diverticulitis PAULINO (dyspnea on exertion) Dysphagia Encounter for Medicare annual wellness exam Encounter for routine adult health examination with abnormal findings Encounter to establish care Essential hypertension Fatigue Follow up GERD (gastroesophageal reflux disease) Heart murmur Hx of Graves' disease Hx of thrombophlebitis Hypersomnolence Hypothyroidism Infection of nail Microvascular angina Minimal change disease On chief writer drug therapy Reactive airway disease without complication Rheumatoid arthritis SOB (shortness of breath) URI (upper respiratory infection) Surgical History Surgical History History of cataract extraction with lens replacement History of cholecystectomy History of partial colectomy For recurrent diverticulitis. History of tonsillectomy History of total replacement of right shoulder joint Family History Family History Father Acute myocardial infarction Hypertension H/O heart surgery Congestive heart failure History of blood clots Mother , DOESNT REMEMBER ANY HEALTH PROBLEMS. No problems noted. Social History Social History Social History: Surrogat
[2023-06-29] MEDS: LACTATED RINGERS 1,000 ML 30 ML IV CONT (08:00)
[2023-06-29] MEDS: ACETAMINOPHEN 500 MG TABLET 1000 MG PO (08:06)
[2023-06-29 08:22] VITALS: BP 130/60
[2023-06-29 09:38] VITALS: BP 118/56; PULSE 63; RESP 12; O2SAT 97
--- NOTE | 2023-06-29 09:39 | W.PM.PROC2 ---
Procedure Note - Detailed Date of Procedure 06/29/23 Pre-op Diagnosis post menopausal bleeding thickened endometrium Post-op Diagnosis Same (Uterine septum) Procedure Performed 1. Hysteroscopy 2. Endometrial curettings 3. Uterine septum removal Surgeon Harpreet Perez MD Anesthesia MAC Findings 1. Intrauterine septum 2. Normal endometrial cavity (no thickening or polyps) Description of Procedure Patient prepped and draped usual manner for this procedure. Cervix was dilated to allow the hysteroscope to be placed which did reveal no thickened tissue no polyps no evidence of hyperplasia or hypertrophy. Uterine septum was noted. Uterine shavings were obtained throughout the endometrial cavity although these were minimal. Uterine septum was then removed as well. There was no bleeding at this point the procedure was considered terminated Estimated Blood Loss 10 Drains No Packing No Pathology Yes Complications No immediate complications Condition Stable Disposition PACU [facility] Billing Surgery - Charge Forward: Surgery Billing
[2023-06-29 10:05] VITALS: BP 119/64; PULSE 61; RESP 12
== END 2023-06-29 10:30 | disposition home or self-care (01) ==
PROVIDERS: PCP Internal Medicine; Visit Provider Obstetrics & Gynecology
PROC: 0U5B8ZZ Destruction of Endometrium, Via Natural or Artificial Opening Endoscopic (ICD-10-PCS; CPT 58563; principal; 2023-06-29 09:15)
DX: N95.0 Postmenopausal bleeding (principal); Q51.28 Other and unspecified doubling of uterus; I48.91 Unspecified atrial fibrillation; I10 Essential (primary) hypertension; M06.9 Rheumatoid arthritis, unspecified; K21.9 Gastro-esophageal reflux disease without esophagitis; E03.9 Hypothyroidism, unspecified; J45.909 Unspecified asthma, uncomplicated; Z90.49 Acquired absence of other specified parts of digestive tract; Z79.01 Long term (current) use of anticoagulants; Z79.51 Long term (current) use of inhaled steroids
CPT/HCPCS: 58558; 88305; A9270; J1100; J2250; J2405; J2704; J3010; J7120

== ENCOUNTER 2023-08-02 12:17 | Outpatient (CLI) | payer MEDICARE, SELFPAY ==
--- NOTE | ~2023-08-02 | US_ITS ---
Abdominal Sonogram: Real-time sonographic imaging of the abdomen was performed. Clinical History: Nausea and vomiting Findings: The liver appears normal with no evidence of mass lesion or bile duct dilatation. Main por meme vein demonstrates normal direction of flow. The spleen is normal in size without evidence of foca l lesion. The gallbladder is absent, compatible prior cholecystectomy. The common bile duct measures 5 mm. The visualized pancreas, aorta, and IVC are unremarkable. The right kidney measures 11.7 cm in length and the left kidney measures 11.6 cm. There is no hydronephrosis or renal calculus. Impression: Status post cholecystectomy, otherwise unremarkable abdominal ultrasound. Reviewed, dictated and finalized at location . 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
[2023-08-02 12:54] LABS: Basophils Absolute Auto 0.1 K/mm3 (0.0-0.1); Basophils Percent Auto 1.8 % (0.2-1.2); Eosinophils Absolute Auto 0.1 K/mm3 (0-0.3); Eosinophils Percent Auto 1.8 % (0-4.4); Hemoglobin 13.5 g/dL (12.0-15.0); Immature Granulocyte Absolute 0.02 K/mm3 (0.00-0.031); Immature Granulocyte Percent A 0.3 % (0-0.5); Lymphocytes Absolute Auto 1.47 K/mm3 (0.9-3.2); Lymphocytes Percent Auto 23.9 % (18.3-44.2); Mean Corpuscular HGB Conc 32.1 g/dl (32-36); Mean Corpuscular Hemoglobin 31.9 pg (26-34); Mean Corpuscular Volume 99.3 fl (80-100); Mean Platelet Volume 11.3 fl (7.4-10.4); Monocytes Absolute Auto 0.4 K/mm3 (0.1-0.6); Monocytes Percent Auto 6.5 % (2.6-8.5); Neutrophils Percent Auto 65.7 % (45.5-73.1); Platelet Count Result 236 k/mm3 (150-375); Red Blood Count 4.23 M/mm3 (4.2-5.4); Red Cell Distribution Width 11.8 % (11.5-14.5); White Blood Count 6.1 K/mm3 (4.5-10.0)
[2023-08-02 13:04] LABS: Alanine Aminotransferase 18 U/L (6-35); Albumin Level 4.3 g/dL (3.5-5.1); Alkaline Phosphatase 51 U/L (38-126); Amylase 66 U/L (30-110); Anion Gap 7 mmol/L (8-16); Aspartate Amino Transferase 29 U/L (14-36); Bilirubin,Total 0.8 mg/dL (0.2-1.3); Blood Urea Nitrogen 17 mg/dL (7-17); Carbon Dioxide 31 mmol/L (22-30); Chloride 102 mmol/L (98-107); Estimated Glomerular Filt Rate > 60; Glucose 94 mg/dL (65-110); Lipase 93 U/L (23-300); Sodium 140 mmol/L (137-145)
== END 2023-08-02 12:18 | disposition home or self-care (01) ==
LOC: ANHIMG 12:20
PROVIDERS: PCP Internal Medicine; Visit Provider Internal Medicine
DX: R10.9 Unspecified abdominal pain (principal); R11.2 Nausea with vomiting, unspecified; Z90.49 Acquired absence of other specified parts of digestive tract
CPT/HCPCS: 36415; 76700; 80053; 82150; 83690; 85025

== ENCOUNTER 2023-12-25 15:04 | Outpatient (CLI) | payer MEDICARE, SELFPAY ==
--- NOTE | ~2023-12-25 | XR_ITS ---
EXAMINATION: XR chest 2V 12/25/2023 15:37 INDICATION: Shortness of breath. Atrial fibrillation. PROCEDURE: 2 view chest COMPARISON: 05/03/2023 FINDINGS: The lungs are clear. The cardiomediastinal silhouette is within normal limits. There are no pleural effusions. There is no pneumothorax suspected. There are bilateral shoulder arthroplasti es. There is atherosclerosis of the aorta. There is evidence of chronic granulomatous disease. IMPRESSION: 1: NO ACUTE CARDIOPULMONARY DISEASE. Reviewed, dictated and finalized at location B.
[2023-12-25 15:40] LABS: Basophils Absolute Auto 0.1 K/mm3 (0.0-0.1); Eosinophils Absolute Auto 0.1 K/mm3 (0-0.3); Eosinophils Percent Auto 1.4 % (0-4.4); Hematocrit 44.5 % (37.0-47.0); Hemoglobin 14.7 g/dL (12.0-15.0); Immature Granulocyte Absolute 0.02 K/mm3 (0.00-0.031); Immature Granulocyte Percent A 0.3 % (0-0.5); Lymphocytes Absolute Auto 1.96 K/mm3 (0.9-3.2); Lymphocytes Percent Auto 24.8 % (18.3-44.2); Mean Corpuscular Hemoglobin 31.6 pg (26-34); Mean Corpuscular Volume 95.7 fl (80-100); Mean Platelet Volume 11.2 fl (7.4-10.4); Monocytes Absolute Auto 0.7 K/mm3 (0.1-0.6); Monocytes Percent Auto 8.5 % (2.6-8.5); Neutrophils Absolute Auto 5.1 K/mm3 (1.3-6.7); Platelet Count Result 246 k/mm3 (150-375); Red Blood Count 4.65 M/mm3 (4.2-5.4); Red Cell Distribution Width 11.8 % (11.5-14.5); White Blood Count 7.9 K/mm3 (4.5-10.0)
[2023-12-25 16:35] LABS: Hemoglobin A1C 4.8 % (<5.7)
[2023-12-25 16:59] LABS: Alanine Aminotransferase 19 U/L (6-35); Albumin Level 4.8 g/dL (3.5-5.1); Alkaline Phosphatase 75 U/L (38-126); Anion Gap 8 mmol/L (4-12); Aspartate Amino Transferase 35 U/L (14-36); Bilirubin,Total 0.8 mg/dL (0.2-1.3); Blood Urea Nitrogen 21 mg/dL (7-17); Carbon Dioxide 27 mmol/L (22-30); Chloride 106 mmol/L (98-107); Cholesterol 160 mg/dL (0-200); Estimated Glomerular Filt Rate > 60; Glucose 94 mg/dL (65-110); HDL Direct 61 mg/dL; Potassium 4.3 mmol/L (3.4-5.0); Sodium 141 mmol/L (137-145); Triglycerides 177 mg/dL (<150)
[2023-12-25 17:10] LABS: LDL Cholesterol Direct 77 mg/dL
[2023-12-25 18:12] LABS: Free T4 Free Thyroxine 1.71 ng/mL (0.78-2.19); Vitamin D 25 Hydroxy 50.9 ng/mL
== END 2023-12-25 15:05 | disposition home or self-care (01) ==
PROVIDERS: PCP Internal Medicine; Visit Provider Internal Medicine
DX: E03.9 Hypothyroidism, unspecified (principal); I10 Essential (primary) hypertension; E55.9 Vitamin D deficiency, unspecified; E78.2 Mixed hyperlipidemia; Z79.899 Other long term (current) drug therapy; Z13.1 Encounter for screening for diabetes mellitus
CPT/HCPCS: 36415; 71046; 80053; 80061; 82306; 83036; 84439; 84443; 85025

== ENCOUNTER 2023-12-29 10:35 | Outpatient (CLI) | payer MEDICARE, SELFPAY ==
[2023-12-29 11:49] LABS: Parathyroid Intact 12.9 pg/mL (7.5-53.5)
[2023-12-30 15:24] LABS: Ionized Calcium 5.4 mg/dL (4.7-5.5)
== END 2023-12-29 10:36 | disposition home or self-care (01) ==
LOC: ANHLAB 10:40
PROVIDERS: PCP Internal Medicine; Visit Provider Internal Medicine
DX: R79.89 Other specified abnormal findings of blood chemistry (principal)
CPT/HCPCS: 36415; 82330; 83970

== ENCOUNTER 2024-03-27 12:48 | Emergency (ER) | payer MEDICARE, SELFPAY ==
--- NOTE | ~2024-03-27 | XR_ITS ---
Clinical Indication: Chest pain PA and lateral views of the chest: Comparison: 12/25/2023 Findings: The lungs are clear, aside from a I granulomas, without evidence of focal consolidation or pleural effusion. Cardiomediastinal silhouette is within normal limits. Bilateral shoulder arthropla sties are present. Impression: No acute abnormality. Reviewed, dictated and finalized at location . Impression: No acute abnormality.
--- NOTE | ~2024-03-27 | CT_ITS ---
EXAMINATION: CTA chest PE protocol DATE: 03/27/2024 16:44 INDICATION: Shortness of breath. Chest pain. TECHNIQUE: Computed tomography angiography (CTA) of the chest was performed with 100 mL Omnipaque-350 intravenous contrast timed to evaluate the pulmonary arteries. Coronal maximum intensity projection 3D-reconstructions were created by the technologist. Automated exposure control and iterative reconst ruction technique were employed. The dose-length product was 221.56 mGy-cm. COMPARISON: Chest CT 05/08/2023 FINDINGS: There is mild scarring at the lung apices. There is mild atelectasis bilaterally. Calcified pulmonary nodules and calcified hilar and mediastinal lymph nodes are consistent with old granulomat ous disease. No pleural effusion. Cardiomegaly is noted. There is a stable small pericardial effusion . There are coronary artery calcifications. There is no pulmonary embolus. There are bilateral should er arthroplasties. There are changes of cholecystectomy. There is calcified atherosclerosis of the ao rta and many of the other arteries. There is severe thoracic spondylosis. Pectus excavatum is noted. IMPRESSION: 1. No pulmonary embolus. 2. Stable small pericardial effusion. Reviewed, dictated and finalized at location A.
--- NOTE | 2024-03-27 12:52 | ECG_ITS ---
Test Date: 2024-03-27 12:55:36 Measurements Intervals [place] Rate: 67 P: 4 ME: 172 QRS: -35 QRSD: 79 T: 21 QT: 383 QTc: 405 Interpretive Statements SINUS RHYTHM LEFT AXIS DEVIATION POSSIBLE LEFT ATRIAL ENLARGEMENT ANTERIOR MYOCARDIAL INFARCTION , OF INDETERMINATE AGE INFERIOR MYOCARDIAL INFARCTION , OF INDETERMINATE AGE BASELINE ARTIFACT- I, II, III, AVR, AVL, AVF ABNORMAL ECG No previous ECG available for comparison Electronically Signed On 03-27-2024 14:06:51 CDT by Daljit Wagner D.O.
[2024-03-27 12:53] VITALS: BP 154/78; PULSE 76; RESP 18; TEMP 36.5; O2SAT 100
[2024-03-27 13:07] LABS: Basophils Absolute Auto 0.1 K/mm3 (0.0-0.1); Basophils Percent Auto 1.2 % (0.2-1.2); Eosinophils Absolute Auto 0.2 K/mm3 (0-0.3); Hematocrit 44.9 % (37.0-47.0); Hemoglobin 14.7 g/dL (12.0-15.0); Immature Granulocyte Absolute 0.03 K/mm3 (0.00-0.031); Immature Granulocyte Percent A 0.4 % (0-0.5); Lymphocytes Absolute Auto 1.48 K/mm3 (0.9-3.2); Mean Corpuscular HGB Conc 32.7 g/dl (32-36); Mean Corpuscular Hemoglobin 32.2 pg (26-34); Mean Corpuscular Volume 98.2 fl (80-100); Mean Platelet Volume 11.2 fl (7.4-10.4); Monocytes Absolute Auto 0.6 K/mm3 (0.1-0.6); Monocytes Percent Auto 8.2 % (2.6-8.5); Neutrophils Absolute Auto 5.1 K/mm3 (1.3-6.7); Neutrophils Percent Auto 68.2 % (45.5-73.1); Platelet Count Result 254 k/mm3 (150-375); Red Blood Count 4.57 M/mm3 (4.2-5.4); Red Cell Distribution Width 11.5 % (11.5-14.5); White Blood Count 7.4 K/mm3 (4.5-10.0)
[2024-03-27 13:18] LABS: Alanine Aminotransferase 20 U/L (6-35); Albumin Level 4.6 g/dL (3.5-5.1); Alkaline Phosphatase 66 U/L (38-126); Anion Gap 7 mmol/L (4-12); Aspartate Amino Transferase 37 U/L (14-36); Bilirubin,Total 0.7 mg/dL (0.2-1.3); Blood Urea Nitrogen 24 mg/dL (7-17); Calcium 10.8 mg/dL (8.4-10.2); Carbon Dioxide 30 mmol/L (22-30); Chloride 102 mmol/L (98-107); Estimated CRCL calculation 48 ml/min; Estimated Glomerular Filt Rate > 60; Glucose 89 mg/dL (65-110); Lipase 202 U/L (23-300); Potassium 4.8 mmol/L (3.4-5.0); Sodium 139 mmol/L (137-145)
[2024-03-27 13:19] LABS: INR 1.2; Partial Thromboplastin Time 33.1 Seconds (22.3-36.8); Prothrombin Time 15.3 Seconds (11.1-14.7)
[2024-03-27 13:29] LABS: Troponin I < 0.012 ng/mL (0.000-0.034)
--- NOTE | 2024-03-27 14:46 | ED.CHESTPAIN ---
HPI - Chest Pain General Chief Complaint: Chest Pain <Jayshree Wylie PA-C - Last Filed: 03/27/24 14:55> Stated Complaint: chest pain for 4 hours yesterday <Jayshree Wylie PA-C - Last Filed: 03/27/24 14:55> Time Seen by Provider: 03/27/24 16:04 <Jayshree Wylie PA-C - Last Filed: 03/27/24 14:55> Focused HPI: 74 Year old female with history of CAD, Graves disease, paroxysmal AFib chronically anticoagulated on Eliquis presents to the emergency department with her daughter at bedside for chest pain that started yesterday. Patient states she was walking out of a store at the mall when she began having chest tightness throughout her chest that radiated to her back. She stated lasted approximately 4 hours until she was able to get home and it started to ease up. She woke up again with the pain today with associated shortness of breath which prompted her to come to the ED. She states her symptoms were have resolved approximately 1 hour ago. She denies cough or congestion, fever, abdominal pain, lower extremity edema. His streetcar operator is Dr. Santos. GENERAL: Well-appearing, well-nourished, and in no acute distress. HEAD: Normocephalic, atraumatic. CHEST: Clear to auscultation. ?No respiratory distress. HEART: Regular rate and rhythm.? NEURO: ?Alert and oriented x3. Patient screened in triage and initial orders placed.? ?Additional care and disposition to be based upon?diagnostic testing and treatment. <Jayshree Wylie PA-C - Last Filed: 03/27/24 14:55> History of Present Illness HPI narrative: 74-year-old female presents emergency department for evaluation for suspected AFib episode yesterday that lasted approximately 4 hours. Patient states she does have a prior history of atrial fibrillation. Patient states when she was having this episode she noted that her pulse was fast. Patient has no prior history of coronary disease, patient did have a negative stress test about a year ago. At <Rik uCtler MD - Last Filed: 03/27/24 21:16> Related Data Home Medications: Home Medications Medication Instructions Recorded Confirmed fluticasone fur. 200 mcg-umeclid 1 inh inhalation DAILY PRN Wheezing 06/26/23 01/15/24 62.5 mcg-vilant 25 mcg inhalat.powder (Trelegy Ellipta) <Jayshree Wylie PA-C - Last Filed: 03/27/24 14:55> Allergies/Adverse Reactions: Allergies Allergy/AdvReac Type Severity Reaction Status Date / Time morphine Allergy Severe Hallucinati Verified 01/15/24 09:23 ng <Jayshree Wylie PA-C - Last Filed: 03/27/24 14:55> Review of Systems Review of Systems: All systems reviewed & are unremarkable except as noted in HPI and below <Rik Cutler MD - Last Filed: 03/27/24 21:16> [facility] Past Medical History Medical History: Medical History A-fib BMI 20.0-20.9, adult BMI 21.0-21.9, adult Breast cancer screening Colon cancer screening Diverticulitis PAULINO (dyspnea on exertion) Dysphagia Encounter for Medicare annual wellness exam Encounter for routine adult health examination with abnormal findings Encounter to establish care Essential hypertension Fatigue Follow up GERD (gastroesophageal reflux disease) Heart murmur Hx of Graves' disease Hx of thrombophlebitis Hypersomnolence Hypothyroidism Infection of nail Microvascular angina Minimal change disease Muscle weakness Nausea On retirement drug therapy Reactive airway disease without complication Rheumatoid arthritis SOB (shortness of breath) URI (upper respiratory infection) Weakness <Jayshree Wylie PA-C - Last Filed: 03/27/24 14:55> Surgical History Surgical History: Surgical History History of cataract extraction with lens replacement History of cholecystectomy History of hysteroscopy (06/29/23) Hysteroscopy/ Endometrial curettings/ Uterine septum rem
--- NOTE | 2024-03-27 15:58 | ECG_ITS ---
Test Date: 2024-03-27 16:07:13 Measurements Intervals [place] Rate: 67 P: 37 [place]: 190 QRS: -16 QRSD: 86 T: 11 QT: 392 QTc: 415 Interpretive Statements SINUS RHYTHM LEFT ATRIAL ENLARGEMENT ANTERIOR MYOCARDIAL INFARCTION , OF INDETERMINATE AGE INFERIOR MYOCARDIAL INFARCTION , OF INDETERMINATE AGE ABNORMAL ECG Compared to ECG 03/27/2024 12:55:36 NO SIGNIFICANT CHANGE Electronically Signed On 03-27-2024 20:07:57 CDT by Daljit Wagner D.O.
[2024-03-27 16:05] VITALS: O2SAT 100
[2024-03-27 16:06] VITALS: PULSE 72
[2024-03-27 16:12] VITALS: BP 151/84; PULSE 67; RESP 15; O2SAT 97
[2024-03-27 16:37] LABS: Troponin I < 0.012 ng/mL (0.000-0.034)
[2024-03-27 17:52] VITALS: BP 142/84; PULSE 68; RESP 14; O2SAT 98
== END 2024-03-27 17:52 | disposition home or self-care (01) ==
PROVIDERS: Emergency Provider Emergency Medicine; PCP Internal Medicine
DX: R07.9 Chest pain, unspecified (principal); I25.10 Atherosclerotic heart disease of native coronary artery without angina pectoris; E05.00 Thyrotoxicosis with diffuse goiter without thyrotoxic crisis or storm; I48.0 Paroxysmal atrial fibrillation; Z79.01 Long term (current) use of anticoagulants; I10 Essential (primary) hypertension; K21.9 Gastro-esophageal reflux disease without esophagitis; M06.9 Rheumatoid arthritis, unspecified
CPT/HCPCS: 36415; 71046; 71275; 80053; 83690; 84484; 85025; 85610; 85730; 93005; 99284; Q9967